=== PATIENT | female | born 1995 | race Caucasian/White ===

== ENCOUNTER → 2016-03-26 | Outpatient (CLI) | payer OTHER ==
[~2016-03-26] MED LIST: ACET-1256 PO; FRRS300 PO; OXYC5TAB PO; PRENTAB26 PO
== END | disposition home or self-care (01) ==
LOC: C.LABSPEC 10:37
PROVIDERS: ATTEND Obstetrics & Gynecology
DX: R35.0 Frequency of micturition (principal)

== ENCOUNTER 2016-04-09 13:15 | Inpatient (IN) | payer OTHER ==
[~2016-04-09] VITALS: Ht 165.1 cm; Wt 96.0 kg
[~2016-04-09 13:15] MED LIST changes: -FRRS300 PO
[2016-04-09] MEDS ORDERED: LACTATED RINGER'S 1000ML 1,000 ML IV SCH ×2 (13:19→13:43)
[2016-04-09] MEDS ORDERED: BUPIVACAINE 0.25% 30 ML VIAL ONE (13:22)
[2016-04-09] MEDS ORDERED: FENTANYL CITRATE INJ 50 MCG/1 ML 2 ML VIAL ONE (13:23)
[2016-04-09] MEDS ORDERED: FENTANYL 2MCG/ML ROPIV 1.25MG/ML 100ML BAG EPI ONE (13:23)
[2016-04-09] MEDS ORDERED: EpHEDrine SULFATE INJ 50 MG/ML AMP ONE (13:23)
[2016-04-09] MEDS ORDERED: PENICILLIN G POTASSIUM IV 3 MU in DEXTROSE 5% 100ML 100 ML IV PRN ×2 (13:30→13:45)
[2016-04-09] MEDS ORDERED: PENICILLIN G POTASSIUM IV 6 MU in DEXTROSE 5% 250ML 250 ML IV ONE ×2 (13:30→13:45)
[2016-04-09] MEDS: LACTATED RINGER'S 1000ML 1,000 ML IV PRN ×2 (13:34→17:23)
[2016-04-09] MEDS ORDERED: LACTATED RINGER'S 1000ML 1,000 ML IV PRN (13:43)
[2016-04-09 13:52] LABS: HEMATOCRIT 33.3 % (37-47); MEAN CELL VOLUME 85.6 fL (80-100); MEAN CORPUSCULAR HEMOGLOBIN 29.3 pg (25-34); MEAN CORPUSCULAR HGB CONC 34.2 g/dl (32-36); MEAN PLATELET VOLUME 10.2 fL (7.4-10.4); PLATELET COUNT 249 K/uL (130-400); RED BLOOD COUNT 3.89 M/uL (4.2-5.4); WHITE BLOOD COUNT 22.79 K/uL (4.8-10.8)
[2016-04-09] MEDS ORDERED: LACTATED RINGER'S 1000ML 500 ML IV PRN (14:19)
[2016-04-09] MEDS ORDERED: NALOXONE HCL INJ 0.4 MG/1 ML VIAL/CARP IV PRN (14:30)
[2016-04-09] MEDS ORDERED: DiphenhydrAMINE HCL 50 MG/ML VIAL IV PRN (14:30)
[2016-04-09] MEDS ORDERED: ONDANSETRON INJ 2 MG/ML 2 ML VIAL IV PRN (14:30)
[2016-04-09] MEDS ORDERED: NALBUPHINE HCL INJ 10 MG/ML AMP IV PRN (14:30)
[2016-04-09] MEDS ORDERED: EpHEDrine SULFATE INJ 50 MG/ML AMP IV PRN (14:30)
[2016-04-09] MEDS ORDERED: FENTANYL 2MCG/ML ROPIV 1.25MG/ML 100ML BAG EPI PRN (14:30)
[2016-04-09 14:53] VITALS: Ht 165.1 cm; Wt 96.0 kg
[2016-04-09] MEDS ORDERED: OXYTOCIN 30 UNITS/500ML NSS IV ONE (17:38)
[2016-04-09] MEDS ORDERED: IBUPROFEN 600 MG TAB PO PRN (18:15)
[2016-04-09] MEDS ORDERED: OXYTOCIN 30 UNITS/500ML NSS IV PRN (18:15)
[2016-04-09] MEDS ORDERED: DIPHTHERIA/TETANUS/PERTUSSIS 0.5 ML SYR/VIAL IM. ONE (18:15)
[2016-04-09] MEDS ORDERED: SUPERCREAM 0.870 % 15GM JAR EXT PRN (18:15)
[2016-04-09] MEDS ORDERED: ACETAMINOPHEN/CODEINE 300/30MG TAB PO PRN (18:15)
[2016-04-09] MEDS ORDERED: LANOLIN OINT EXT PRN ×2 (18:15)
[2016-04-09] MEDS ORDERED: ACETAMINOPHEN 325 MG TAB PO PRN (18:15)
[2016-04-09] MEDS ORDERED: OXYCODONE/ACETAMINOPHEN 5-325 TAB PO PRN (18:15)
[2016-04-09] MEDS ORDERED: HYDROCORTISONE ACETATE 25 MG SUPP PR PRN (18:15)
[2016-04-09] MEDS ORDERED: BENZOCAINE 20% AER SPR 82.5 GM CAN EXT PRN (18:15)
--- NOTE | 2016-04-09 19:53 | Anesthesia Procedure Note ---
Anesthesia Epidural Removal Nt Date & Time Apr 09, 2016 at 19:53 Vital Signs Pain Intensity: 0.0 Notes Mental Status: alert / awake / arousable, participated in evaluation Nausea / Vomiting: adequately controlled Pain: adequately controlled Airway Patency, RR, SpO2: stable & adequate BP & HR: stable & adequate Hydration State: stable & adequate Neuraxial Anesthesia: was administered, sensory block is resolved Anesthetic Complications: no major complications apparent, pt satisfied with anesthetic care Epidural: removed without complications, with tip intact
[2016-04-09] MEDS: DOCUSATE SODIUM 100 MG CAP PO SCH (20:00)
--- NOTE | 2016-04-09 20:00 | DELIVERY SUMMARY ---
DATE OF OPERATION: 04/09/2016 PREOPERATIVE DIAGNOSIS: 1. Intrauterine at 39-1/7 weeks. 2. Active labor. POSTOPERATIVE DIAGNOSIS: Same. PROCEDURES: 1. Epidural anesthesia. 2. Normal spontaneous vaginal delivery. 3. First degree vaginal laceration, bilateral labial lacerations and periclitoral laceration with repair. SURGEON: Dr. Jay. ANESTHESIA: Epidural. ESTIMATED BLOOD LOSS: 400 mL. PROCEDURE: The patient presented to labor and delivery in active labor. She was admitted and underwent an epidural anesthesia, had spontaneous rupture of membranes and progressed spontaneously to complete complete and +2 station. She pushed over 2 contractions to delivery a viable male infant in FCO presentation. There was no nuchal cord but a knuckle of cord came out after the head was delivered. The anterior shoulder was then immediately delivered with ease and the rest of the body was delivered. There was immediate cry. Nose and mouth were bulb suctioned. The was placed on the maternal abdomen where the cord was clamped and cut. Cord blood was obtained. The placenta delivered spontaneously intact with a 3-vessel cord. The cervix, sulci, rectum and perineum were examined and found to be intact. There was first degree vaginal laceration, bilateral labial lacerations and periclitoral laceration which were repaired with 3 and 4-0 Vicryl. Hemostasis obtained with dilute Pitocin and fundal massage. Apgars pending. Weight pending. Mother and baby doing well at the end of the delivery. I attest to the content of the Intraoperative Record and any orders documented therein. Any exceptio ns are noted below.
[2016-04-09 20:20] VITALS: BP 120/66; PULSE 110; TEMP 36.4
[2016-04-09] MEDS: ACETAMINOPHEN/CODEINE 300/30MG TAB PO PRN (22:13)
[2016-04-09 23:25] VITALS: BP 112/78; PULSE 94; TEMP 36.8
[2016-04-10] MEDS: ACETAMINOPHEN/CODEINE 300/30MG TAB PO PRN ×3 (00:50→17:09)
[2016-04-10 03:50] VITALS: BP 124/79; PULSE 98; TEMP 36.7
[2016-04-10 06:42] LABS: HEMATOCRIT 27.5 % (37-47)
--- NOTE | 2016-04-10 07:08 | Progress Note ---
Subjective Apr 10, 2016. Subjective conversation w/ patient, physical exam Ambulation: ambulating normally Voiding: no voiding problems Passing Gas: Yes Diet Tolerance: Regular Diet Feeding Type: Breast Feeding Review of Systems Constitutional: No chills, No fever Respiratory: No cough Cardiac: No chest pain, No palpitations Abdomen: No nausea, No pain, No vomiting Female : No dysuria Objective Vital Signs Date Time Temp Pulse Resp B/P Pulse Ox O2 Delivery O2 Flow Rate FiO2 04/10/16 03:50 36.7 98 20 124/79 Room Air 04/09/16 23:25 Room Air 04/09/16 23:25 36.8 94 18 112/78 Room Air 04/09/16 20:20 36.4 110 20 120/66 Room Air 04/09/16 20:20 Room Air Physical Exam General Appearance: WELL-APPEARING, NO APPARENT DISTRESS Respiratory/Chest: lungs clear, normal breath sounds Cardiovascular: regular rate, rhythm, no murmur Abdomen: non tender Fundus: Firm, Non-Tender, Relation to Umbilicus (2 cm above) Extremities: non-tender, no calf tenderness Laboratory Results Last 24 Hours Test 04/09/16 13:46 04/10/16 06:25 White Blood Count 22.79 K/uL Red Blood Count 3.89 M/uL Hemoglobin 11.4 g/dL 9.2 g/dL Hematocrit 33.3 % 27.5 % Mean Corpuscular Volume 85.6 fL Mean Corpuscular Hemoglobin 29.3 pg Mean Corpuscular Hemoglobin Concent 34.2 g/dl RDW Standard Deviation 42.4 fL RDW Coefficient of Variation 13.7 % Platelet Count 249 K/uL Mean Platelet Volume 10.2 fL Assessment and Plan Problem List Medical Problems: (1) Back strain Status: Acute (2) Fever Status: Acute (3) Status: Acute (4) Pyelonephritis affecting Status: Acute (5) Sepsis Status: Acute (6) Spasm of back muscles Status: Acute (7) Spasm of back muscles Status: Acute Post- Day#: 1 Continue Routine Care: S/P Day 1 - Vital Signs reviewed and WNL. Hemoglobin Reviewed. 11.4 yesterday - Blood Type: O+, GBS+, Rubella Immune. - Pt is doing well clinically. - Encourage Ambulation, Monitor and Control pain with Motrin PRN, Resume regular diet, Monitor Lochia - Encourage Breast Feeding. - Continue routine post care Resident Physician Supervision Note: I interviewed and examined the patient. Discussed with Dr. Kapoor and agree with findings and plan as documented in the note. Any exceptions or clarifications are listed here: Uterus is below umbilicus when excess skin taken into account. Will give nicotene patch. Documented By: Abbey Jay
[2016-04-10] MEDS: DOCUSATE SODIUM 100 MG CAP PO SCH ×2 (07:53→19:57)
[2016-04-10] MEDS: NICOTINE 21 MG/24 HR TDSY TD SCH (07:53)
[2016-04-10] MEDS: PRENATAL VITAMIN TAB PO SCH (07:53)
[2016-04-10 08:00] VITALS: BP 124/79; PULSE 87; TEMP 37
[2016-04-10 12:35] VITALS: BP_SYST 112; BP_SYST 135; BP_DIAS 76; BP_DIAS 86; PULSE 99; TEMP 37.2
[2016-04-10 17:00] VITALS: BP 131/82; PULSE 103; TEMP 37.1
[2016-04-10 23:45] VITALS: BP 131/81; PULSE 87; TEMP 36.8; O2SAT 99
[2016-04-11] MEDS ORDERED: BISACODYL 10 MG SUPP PR PRN (07:00)
[2016-04-11 07:39] VITALS: BP 118/77; PULSE 81; TEMP 36.7
[2016-04-11] MEDS: PRENATAL VITAMIN TAB PO SCH (08:11)
[2016-04-11] MEDS: NICOTINE 21 MG/24 HR TDSY TD SCH (08:11)
[2016-04-11] MEDS: DOCUSATE SODIUM 100 MG CAP PO SCH (08:11)
--- NOTE | 2016-04-11 09:00 | Progress Note ---
Subjective Apr 11, 2016. Subjective conversation w/ patient, physical exam Voiding: no voiding problems Passing Gas: Yes Diet Tolerance: Regular Diet Lochia: Small Review of Systems Constitutional: No chills, No fatigue, No fever, No problem reported, No sweats , No weakness, No weight loss Female : No abnormal vaginal bleeding, No dysuria, No hematuria, No incontinence, No problem reported, No see HPI, No urinary frequency, No vaginal discharge Objective Vital Signs Date Time Temp Pulse Resp B/P Pulse Ox O2 Delivery O2 Flow Rate FiO2 04/11/16 07:39 36.7 81 18 118/77 Room Air 04/10/16 23:45 99 Room Air 04/10/16 23:45 36.8 87 18 131/81 99 Room Air 04/10/16 17:00 37.1 103 18 131/82 Room Air 04/10/16 17:00 Room Air 04/10/16 12:35 37.2 99 18 135/86 Room Air 112/76 Physical Exam General Appearance: WELL-APPEARING, NO APPARENT DISTRESS Abdomen: non tender, soft Fundus: Firm, Non-Tender, Relation to Umbilicus (3 below U) Extremities: no calf tenderness Assessment and Plan Problem List Medical Problems: (1) Back strain Status: Acute (2) Fever Status: Acute (3) Status: Acute (4) Pyelonephritis affecting Status: Acute (5) Sepsis Status: Acute (6) Spasm of back muscles Status: Acute (7) Spasm of back muscles Status: Acute Post- Day#: 2 Continue Routine Care: stable course GBS(+) discharge to home after lunch follow up 6 weeks
[2016-04-11] MEDS ORDERED: FRRS300 PO (09:09)
--- NOTE | 2016-04-11 09:10 | Discharge Instructions ---
Discharge Instructions Admission Reason for Admission: Check Ruptured Membranes Discharge Discharge Diagnosis / Problem: recovery from normal delivery Discharge Goals Goal(s): Routine recovery after delivery Medications Continue Dispensed Medications: supercream, dermaplast, tucks, lansinoh Activity Recommendations Activity Limitations: per Instructions/Follow-up section . Instructions / Follow-Up Instructions / Follow-Up ACTIVITY RECOMMENDATIONS: * Gradual return to full activity over the next 2-3 weeks. * No lifting - nothing heavier than baby over the next 2-3 weeks. * Do not engage in vigorous exercise, sexual activity or sports until cleared by your physician. * Do not drive or operate any motorized equipment until cleared by your physician. * You may shower/bathe daily. MEDICATIONS: For discomfort or pain, you may use Acetaminophen (Tylenol), Ibuprofen (Advil), or Naproxen (Aleve) following the package directions. For constipation you may use Colace following the package directions. BREAST CARE: If you are not breast feeding: * Wear a supportive bra 24 hours a day for one to two weeks. * Avoid stimulating your breasts and nipples as much as possible during the first few weeks after delivery. * When taking a shower, have the warm water hit your back, not breasts. * When your breasts feel full, apply ice packs. Usually three to four times a day helps ease the discomfort. * Take a mild pain medication (Tylenol / Motrin) when you are uncomfortable. If breast feeding: * Use breast milk to lubricate nipples. Lansinoh cream may be used for sore nipples. You do not need to remove cream prior to breast feeding. If using a different brand of cream, check the label for directions regarding removal of cream prior to nursing. * Wear a supportive bra. * If having problems with breasts or breast feeding, call a [employer] sales consultant or your health care provider. EPISIOTOMY CARE: After delivery, if you have an episiotomy (stitches), the following steps will ease discomfort and aid healing. * For the first 24 hours after delivery, place ice packs next to your episiotomy to help reduce swelling. * After the first 24 hour-period, sitz baths, either portable or in the tub, are suggested. A shower with a shower arm sprayed over the episiotomy may be comforting. * Luh care should be done after each voiding and bowel movement. Squirt warm water from a plastic bottle over the perineum (region of the body between the anus and urinary opening) and pat dry. * Use Dermoplast to ease discomfort. Shake container. [place] directly over the episiotomy. Place a Tucks on a clean sanitary pad next to your episiotomy. SPECIAL CARE INSTRUCTIONS: When you are discharged from the hospital, it is important for you to follow the instructions listed below: * During the first week at home, you should be able to care for yourself and your baby. In addition, the usual light household activities are encouraged. * Limit your activities to the way you feel. Do not try to clean the house or move furniture. Be sensible. * If you actively engage in sports and have done so up until the time of your delivery, you may resume these activities as soon as you feel able. This may take up to one month or even longer. Use good judgment. * Continue to take your vitamins for at least six weeks after the of your baby. * Your diet need not be limited unless you were on a special diet before your delivery. Breast-feeding mothers need around 2500 calories per day and at least 64-80 ounces of fluid per day (8 to 10 glasses). * You should eat foods from the four major food groups. Crash diets or fad diets are to be avoided. Eating lean meats, fresh fruits and vegetables, low-fat dairy products, high fiber foods and a regular exercise program, will help you get back to your pre- weight without putting your health at risk. * Constipation is sometimes a problem after delivery. Take a mild laxative as needed. If breast feeding, Milk of Magnesia is acceptable to use. You may use a suppository or Fleets enema if no episiotomy. * A daily shower or tub bath is suggested. Be sure to thoroughly and gently dry the perineum. * A bloody vaginal discharge will usually continue until around four weeks post . A small amount of bleeding may continue for as long as six weeks. Vaginal discharge changes from the bright red bleeding after delivery to pink then brownish and finally yellowish-pink before becoming white and disappearing. * Bleeding may increase with activity. Your first period may come in 4-8 weeks. If you are breast feeding, your period may be delayed even longer. * [place] (sex) can begin whenever both you and your partner feel comfortable and do not have any form of genital infection. It is recommended that you wait at least six weeks for internal and external healing to occur. If you have questions, please talk to your health care practitioner. A condom should be used to prevent infection and . * Foreplay, gentle intercourse and lubrication is very important the first several times to prevent pain. A water-based lubricant such as K-Y jelly or Astroglide may be used. * If you have RH negative blood and your baby is RH positive, you will receive RHOGAM by injection prior to discharge. The nurse will give you a card to keep with you that has the date and place that you received RHOGAM after delivery. * During your care, you had a Rubella screen done to check for the presence of rubella antibodies in your blood. If your test was negative, you will receive a Rubella vaccine prior to discharge. This vaccine may cause a fever, soreness at the injection site and flu-like symptoms. If these symptoms persist, notify your health care practitioner. is not advised for one month after a Rubella vaccine. * Verbalizes understanding of car seat law as reviewed with patient nursing. * Car Seat hand-out given and reviewed with patient by nursing. * Shaken baby information reviewed with patient by nursing. Call you doctor if: * Heavy bleeding (saturating several pads an hour) or passing clots the size of your fist. * A fever >101 degrees F (38.3 degrees C) on two occasions four hours apart and /or chills. * Unusual pain in the pelvic or vaginal areas. * "Baby Blues" lasting longer than two weeks. If you have any questions or concerns, call your health care practitioner at . FOLLOW UP VISIT: * Please call the office at to schedule a 6 week examination. It is important you keep this appointment. It is important for you to make arrangements for either yearly or twice yearly check-ups thereafter. Current Hospital Diet Patient's current hospital diet: Regular OB Diet Discharge Diet Recommended Diet: Regular OB Diet Pending Studies Studies pending at discharge: no Medical Emergencies . Who to Call and When: Medical Emergencies: If at any time you feel your situation is an emergency, please call 911 immediately. . Non-Emergent Contact Non-Emergency issues call your: Assorter . . "Provider Documentation" section prepared by Sully Bernard. VTE Core Measure Inpt VTE Proph given/why not?: Treatment not indicated
[2016-04-11] MEDS ORDERED: FERROUS SULFATE 325 MG TAB PO SCH (11:30)
[2016-04-11] MEDS: ACETAMINOPHEN/CODEINE 300/30MG TAB PO PRN (12:21)
[2016-04-11 12:50] VITALS: BP_DIAS 77; PULSE 81; TEMP 36.7
== END 2016-04-11 12:50 | disposition home or self-care (01) | DRG 775 ==
LOC: C.OPB 13:15 → C.LD 13:20 → C.OPB 13:27 → C.OBG 20:40
PROVIDERS: ADMIT Obstetrics & Gynecology; ATTEND Obstetrics & Gynecology
PROC: 10E0XZZ Delivery of Products of Conception, External Approach (ICD-10-PCS; principal; 2016-04-09)
PROC: 0HQ9XZZ Repair Perineum Skin, External Approach (ICD-10-PCS; principal; 2016-04-09)
DX: O99.824 Streptococcus B carrier state complicating childbirth (principal); O70.0 First degree perineal laceration during delivery; Z3A.39 39 weeks gestation of pregnancy; Z37.0 Single live birth

== ENCOUNTER → 2016-05-21 | Outpatient (CLI) | payer OTHER ==
[~2016-05-21] MED LIST changes: +FRRS300 PO; -OXYC5TAB PO
== END | disposition home or self-care (01) ==
LOC: C.PAPS 08:27
PROVIDERS: ATTEND Obstetrics & Gynecology
DX: Z39.2 Encounter for routine postpartum follow-up (principal); R87.610 Atypical squamous cells of undetermined significance on cytologic smear of cervix (ASC-US)

== ENCOUNTER 2017-06-02 21:30 | Inpatient (IN) | payer OTHER ==
[~2017-06-02] VITALS: Ht 167.6 cm; Wt 97.6 kg
--- NOTE | 2017-06-02 21:50 | EMERGENCY ROOM VISIT NOTE ---
History Report prepared by Marie: Blake Nevarez Under the Supervision of: Dr. Fermín Person M.D. First contact with patient: 21:44 Chief Complaint: URINARY SYMPTOMS Stated Complaint: SEVERE BACK PAIN,KIDNEY INFECTION/UTI, 27 WKS PREG Nursing Triage Summary: Patient reports she was seen at [place] and diagnosed with UTI and kidney infection. Patient given antibiotic but it made her sick so she came here. Patient having burning, pain, and frequency with urination, also low back pain. Patient is 27 weeks . History of Present Illness The patient is a 22 year old female who presents to the Emergency Room with complaints of constant, severe, lower back pain beginning 16 hours ago. The patient states she woke up this morning in pain. She reports she tried taking Tylenol because she had a fever of 104. The patient notes it did not help her symptoms. She states she called her PRINCIPAL STATISTICAL SCIENTIST and was told to be evaluated to make sure the baby is okay. The patient reports the baby is active, but it is not as active as it normally is. She notes she was evaluated in [place] ED and was diagnosed with a UTI and kidney infection. The patient states she was given a dose of IV Keflex and told to fill her prescription in the morning. She reports she was also told to return to the ED if her symptoms worsen. The patient notes they did. She states her last dose of Tylenol was an hour ago. The patient denies vaginal bleeding. Source of History: patient Onset: 16 hours ago Position: back (lower) Symptom Intensity: severe Timing: constant Associated Symptoms: + fevers (104) Note: Denies: vaginal bleeding Review of Systems See HPI for pertinent positives & negatives. A total of 10 systems reviewed and were otherwise negative. Past Medical & Surgical Medical Problems: (1) Cellulitis of labia (2) Normal labor (3) with 27 completed weeks gestation (4) with 39 completed weeks gestation (5) Prolonged (6) Rash (7) Rash (8) Rash (9) Sepsis (10) UTI (urinary tract infection) (11) UTI (urinary tract infection) (12) Vaginal delivery Family History Diabetes mellitus FH: cancer FH: lung disease FHx: cancer FHx: heart disease Kidney disease Kidney stones Seizures Social History Smoking Status: Current Every Day Smoker Drug Use: none Marital Status: single Housing Status: lives with family Occupation Status: student Current/Historical Medications Scheduled Cephalexin Monohydrate (Keflex), 500 MG PO q6-7 hours Multivit/Min/Iron/Fol Ac/Pren ( Vitamin), 1 TAB PO DAILY [antibiotic iv], Unknown Dose IV once Scheduled PRN Acetaminophen (Tylenol), 1,000 MG PO Q6 PRN for Pain Allergies Coded Allergies: No Known Allergies (Unverified , NONE, 06/02/17) Physical Exam Vital Signs Date Time Temp Pulse Resp B/P (MAP) Pulse Ox O2 Delivery O2 Flow Rate FiO2 06/03/17 01:25 126 18 92/48 96 06/03/17 00:50 125 16 101/47 99 Room Air 06/03/17 00:06 39.2 124 16 90/45 99 Room Air 06/02/17 22:10 128 06/02/17 22:04 98 Room Air 06/02/17 21:34 37.8 138 18 132/83 100 Room Air Physical Exam GENERAL: Awake, alert, well-appearing, in no acute distress HENT: Normocephalic, atraumatic. Oropharynx unremarkable. EYES: Normal conjunctiva. Sclera non-icteric. NECK: Supple. No nuchal rigidity. FROM. No JVD. RESPIRATORY: Clear to auscultation. CARDIAC: Regular rate, normal rhythm. Extremities warm and well perfused. Pulses equal. ABDOMEN: Soft, gravid, non-distended. No tenderness to palpation. No rebound or guarding. No masses. RECTAL: Deferred. MUSCULOSKELETAL: Chest examination reveals no tenderness. The back is symmetrical on inspection without obvious abnormality. There is no CVA tenderness to palpation. No joint edema. LOWER EXTREMITIES: Calves are equal size bilaterally and non-tender. No edema. No discoloration. NEURO: Normal sensorium. No sensory or motor deficits noted. SKIN: No rash or jaundice noted. Medical Decision & Procedures ER Provider Diagnostic Interpretation: Radiology results as stated below per my review and radiologist interpretation: US RENAL: Mild bilateral hydronephrosis without stones. Bladder is decompressed. Radiologist: Dawson Marie MD Study ready at 23:53 and initial results transmitted at 0005. US OB 3RD TRIMESTER: Single viable intrauterine gestation with normal heart rate. Placenta is normal-appearing. No retroplacental hemorrhage is detected. Cervix is closed and measures 4.9 cm. DAMARI is normal. Radiologist: Dawson Marie MD Study ready at 23:54 and initial results transmitted at 0007. Laboratory Results 06/02/17 22:15 Red Blood Count 3.60, Mean Corpuscular Volume 88.6, Mean Corpuscular Hemoglobin 31.1, Mean Corpuscular Hemoglobin Concent 35.1, Mean Platelet Volume 10.2, Neutrophils (%) (Auto) 85.9, Lymphocytes (%) (Auto) 5.2, Monocytes (%) (Auto) 8.5, Eosinophils (%) (Auto) 0.1, Basophils (%) (Auto) 0.0, Neutrophils # (Auto) 13.26, Lymphocytes # (Auto) 0.80, Monocytes # (Auto) 1.31, Eosinophils # (Auto) 0.02, Basophils # (Auto) 0.00 06/02/17 22:15 Test 06/02/17 22:15 06/02/17 22:23 06/03/17 00:50 White Blood Count 15.44 K/uL (4.8-10.8) Red Blood Count 3.60 M/uL (4.2-5.4) Hemoglobin 11.2 g/dL (12.0-16.0) Hematocrit 31.9 % (37-47) Mean Corpuscular Volume 88.6 fL (80-100) Mean Corpuscular Hemoglobin 31.1 pg (25-34) Mean Corpuscular Hemoglobin Concent 35.1 g/dl (32-36) Platelet Count 154 K/uL (130-400) Mean Platelet Volume 10.2 fL (7.4-10.4) Neutrophils (%) (Auto) 85.9 % Lymphocytes (%) (Auto) 5.2 % Monocytes (%) (Auto) 8.5 % Eosinophils (%) (Auto) 0.1 % Basophils (%) (Auto) 0.0 % Neutrophils # (Auto) 13.26 K/uL (1.4-6.5) Lymphocytes # (Auto) 0.80 K/uL (1.2-3.4) Monocytes # (Auto) 1.31 K/uL (0.11-0.59) Eosinophils # (Auto) 0.02 K/uL (0-0.5) Basophils # (Auto) 0.00 K/uL (0-0.2) RDW Standard Deviation 44.0 fL (36.4-46.3) RDW Coefficient of Variation 13.5 % (11.5-14.5) Immature Granulocyte % (Auto) 0.3 % Immature Granulocyte # (Auto) 0.05 K/uL (0.00-0.02) Prothrombin Time 10.5 SECONDS (9.0-12.0) Prothromb Time International Ratio 1.0 (0.9-1.1) Activated Partial Thromboplast Time 32.8 SECONDS (21.0-31.0) Partial Thromboplastin Ratio 1.3 Anion Gap 8.0 mmol/L (3-11) Est Creatinine Clear Calc Drug Dose 125.8 ml/min Estimated GFR () 121.3 Estimated GFR (Non- 104.7 BUN/Creatinine Ratio 7.4 (10-20) Calcium Level 8.3 mg/dl (8.5-10.1) Total Bilirubin 0.3 mg/dl (0.2-1) Aspartate Amino Transf (AST/SGOT) 10 U/L (15-37) Alanine Aminotransferase (ALT/SGPT) 13 U/L (12-78) Alkaline Phosphatase 102 U/L (45-117) Total Protein 7.1 gm/dl (6.4-8.2) Albumin 2.7 gm/dl (3.4-5.0) Globulin 4.4 gm/dl (2.5-4.0) Albumin/Globulin Ratio 0.6 (0.9-2) Bedside Lactic Acid Venous 1.17 mmol/L (0.90-1.70) Labs reviewed by ED physician. Medications Administered Medications (Trade) Dose Ordered Sig/Josue Route Start Time Stop Time Status Last Admin Dose Admin Sodium Chloride 1,000 ml @ 999 mls/hr Q1H1M ONCE IV 06/02/17 21:51 06/02/17 22:51 DC 06/02/17 22:32 999 MLS/HR Ceftriaxone Sodium (Rocephin Inj) 1 gm NOW STAT IV 06/02/17 21:51 06/02/17 21:54 DC 06/02/17 22:31 1 GM Ondansetron HCl (Zofran Inj) 4 mg NOW STAT IV 06/02/17 21:51 06/02/17 21:54 DC 06/02/17 22:31 4 MG Sodium Chloride 1,000 ml @ 999 mls/hr Q1H1M STAT IV 06/02/17 22:40 06/02/17 23:40 DC 06/02/17 22:50 999 MLS/HR Sodium Chloride 1,000 ml @ 999 mls/hr Q1H1M STAT IV 06/02/17 23:44 06/03/17 00:44 DC 06/02/17 23:55 999 MLS/HR Morphine Sulfate (MoRPHine SULFATE INJ) 6 mg NOW STAT IV 06/03/17 00:30 06/03/17 00:32 DC 06/03/17 00:51 6 MG Acetaminophen (Tylenol Tab) 1,000 mg NOW STAT PO 06/03/17 00:30 06/03/17 00:32 DC 06/03/17 00:51 1,000 MG ECG Per My Interpretation Indication: other (Sepsis) Rate (beats per minute): 126 Rhythm: sinus tachycardia Findings: other (No ST elevation or depression) ED Course 2145: Past medical records reviewed. The patient was evaluated in room B03B. A complete history and physical examination was performed. 2151: Ordered Ondansetron HCl 4mg IV, Rocephin 1gm IV, Sodium Chloride 1000 ml @ 999 mls/hr IV 2240: Ordered Sodium Chloride 1000 ml @ 999 mls/hr IV 2344: Ordered Sodium Chloride 1000 ml @ 999 mls/hr IV 0028: Upon reexamination the patient is requesting pain medication. I offered Tylenol. I cautioned her on the use of Morphine during . She states she still wants the Morphine. I discussed results and treatment plan with the patient. She verbalizes agreement and understanding. The patient will be evaluated for further management. 0030: Ordered Acetaminophen 1000mg PO, Morphine Sulfate 6mg IV 0047: I discussed the patient's case with Dr. Luque, PRINCIPAL STATISTICAL SCIENTIST. She suggested the patient be admitted to the ICU. I stressed to her that she must put the admission order in. 0052: I discussed the patient's case with Jami Godinez PA-C of the ICU. The patient will be evaluated for further management and care. Medical Decision Differential diagnosis: Etiologies such as sepsis, UTI, pneumonia, metabolic, electrolyte abnormalities , cardiac sources, intracerebral event, toxicologic, neurologic, as well as others were entertained. This is a 22-year-old female who presents the emergency department complaining of back pain as well as urinary symptoms. Patient was at an outside hospital earlier today if continues to have symptoms. Upon arrival to the emergency department she is febrile hypotensive and tachycardic. For this reason the patient was given 30 mL's per kilogram of fluid. She was pancultured and a lactic acid was obtained. The patient was found to have an elevation in her white blood cell count. She was started on Rocephin here in the emergency department. She was sent for an ultrasound of the baby as well as her kidneys. serial abdominal examinations were performed and the patient in the emergency department and at no time to the patient exhibited a surgical abdomen or even abdominal tenderness. I did discuss the case with both the ICU as well as the french folding machine operator gas operations analyst who agreed to admit the patient. Patient and family were in agreement with the treatment plan. The patient was given morphine in the emergency department as well as Tylenol. Medication Reconcilliation Current Medication List: was personally reviewed by me Blood Pressure Screening Patient's blood pressure: Low blood pressure Monitored by hospitalist. Consults Time Called: 37 Consulting Physician: Dr. Luque, PRINCIPAL STATISTICAL SCIENTIST Returned Call: [phone] I discussed the patient's case with Dr. Luque, PRINCIPAL STATISTICAL SCIENTIST. She suggested the patient be admitted to the ICU. I stressed to her that she must put the admission order in. Additional Consults: Time Called: 50 Consulted Physician: Jami Godinez PA-C of the ICU Returned Call: [phone] Additional Comments: I discussed the patient's case with Jami Godinez PA-C of the ICU. The patient will be evaluated for further management and care. Impression Primary Impression: Sepsis Additional Impressions: UTI (urinary tract infection) Critical Care I have personally spent greater than 30 minutes of critical care time in the direct management of this patient. This includes bedside care, interpretation of diagnostic studies, and testing, discussion with consultants, patient, and family members, and other required patient management activities. This 30 minutes is in excess of all separately billable procedures. Scribe Attestation The scribe's documentation has been prepared under my direction and personally reviewed by me in its entirety. I confirm that the note above accurately reflects all work, treatment, procedures, and medical decision making performed by me. Departure Information Dispostion Being Evaluated By Hospitalist Referrals Mary Ellen Pickens C.R.N.P (PCP) Patient Instructions My [facility] Sepsis Post Crystalloid Evaluation Date: Jun 02, 2017 Time: 21:46 Capillary Refill Exam Normal (less than 2 seconds) Cardiopulmonary Evaluation Lung Exam: chest non-tender, lungs clear, normal breath sounds, no respiratory distress, no accessory muscle use Heart Exam: regular rate, rhythm, no edema, no gallop, no JVD, no murmur, normal peripheral pulses Peripheral Pulse Evaluation Bounding Skin Exam Diaphoretic Vitals Last Vital Signs Documentation Date Time Temp Pulse Resp B/P (MAP) Pulse Ox O2 Delivery O2 Flow Rate FiO2 06/03/17 01:25 126 18 92/48 96 06/03/17 00:06 39.2 Presence Of Septic Shock Problem Qualifiers Primary Impression: Sepsis Sepsis type: sepsis due to unspecified organism Qualified Codes: A41.9 - Sepsis, unspecified organism Additional Impressions: UTI (urinary tract infection) Urinary tract infection type: acute cystitis Hematuria presence: without hematuria Qualified Codes: N30.00 - Acute cystitis without hematuria Weeks of gestation: 28 weeks Qualified Codes: Z3A.28 - 28 weeks gestation of
[2017-06-02] MEDS ORDERED: ONDANSETRON INJ 2 MG/ML 2 ML VIAL IV STA (21:51)
[2017-06-02] MEDS ORDERED: CEFTRIAXONE SOD INJ 1 GM ADDVIAL IV STA (21:51)
[2017-06-02] MEDS ORDERED: SODIUM CHLORIDE 0.9% 1000ML 1,000 ML IV ONE (21:51)
[2017-06-02] MEDS ORDERED: CEPH500C2 PO (22:01)
[2017-06-02] MEDS ORDERED: ANTIBIOTIC (22:03)
[2017-06-02 22:35] LABS: EOS % 0.1 %; EOS ABS # 0.02 K/uL (0-0.5); HEMATOCRIT 31.9 % (37-47); HEMOGLOBIN 11.2 g/dL (12.0-16.0); IG# 0.05 K/uL (0.00-0.02); LYMPH % 5.2 %; MEAN CELL VOLUME 88.6 fL (80-100); MEAN CORPUSCULAR HEMOGLOBIN 31.1 pg (25-34); MEAN CORPUSCULAR HGB CONC 35.1 g/dl (32-36); MEAN PLATELET VOLUME 10.2 fL (7.4-10.4); MONO % 8.5 %; MONO ABS # 1.31 K/uL (0.11-0.59); NEUT % 85.9 %; NEUT ABS # 13.26 K/uL (1.4-6.5); PLATELET COUNT 154 K/uL (130-400); RED CELL DISTRIBUTION WIDTH CV 13.5 % (11.5-14.5); WHITE BLOOD COUNT 15.44 K/uL (4.8-10.8)
[2017-06-02] MEDS ORDERED: SODIUM CHLORIDE 0.9% 1000ML 1,000 ML IV STA ×2 (22:40→23:44)
--- NOTE | 2017-06-02 22:41 | DIAGNOSTIC IMAGING REPORT ---
CHEST ONE VIEW PORTABLE CLINICAL HISTORY: Sepsis dyspnea COMPARISON STUDY: 01/15/2016 FINDINGS: The bones soft tissues and hemidiaphragms are normal. The cardiomediastinal silhouette is normal. The lungs are clear. The pulmonary vasculature is normal. IMPRESSION: Negative chest. The above report was generated using voice recognition software. It may contain grammatical, syntax or spelling errors. Electronically signed by: Bill London M.D. 06/02/2017 10:40 PM Dictated Date/Time: 06/02/2017 10:39 PM
[2017-06-02 22:53] LABS: PTT PATIENT 32.8 SECONDS (21.0-31.0)
[2017-06-02 22:54] LABS: ALBUMIN 2.7 gm/dl (3.4-5.0); CALCIUM 8.3 mg/dl (8.5-10.1); CREATININE 0.8 mg/dl (0.60-1.20); POTASSIUM 3.5 mmol/L (3.5-5.1)
[2017-06-02 22:57] LABS: TOTAL PROTEIN 7.1 gm/dl (6.4-8.2)
[2017-06-03] VITALS (12 sets, daily range): BP systolic 84–130; BP diastolic 47–72; PULSE 110–130; TEMP 36.5–37.9; O2SAT 88–99; Ht 167.6 cm; Wt 97.6 kg
[2017-06-03] MEDS ORDERED: ACETAMINOPHEN 500 MG TAB PO STA (00:30)
[2017-06-03] MEDS ORDERED: MoRPHine SULFATE 10 MG/ML CARP/VIAL IV STA (00:30)
--- NOTE | 2017-06-03 01:52 | Critical Care Consultation ---
Critical Care Consultation Date of Consultation: Jun 03, 2017. Attending Physician: Canan. Barrett MD Reason for Consultation: Hypotension and Tachycardia in the setting of infection History of Present Illness Susan Sanchez is a 22 yo female 28weeks with her third son. She presents to [facility] today after being diagnosed with a uti/kidney infection at [facility] and received IV Keflex. Per pt she was discharged home and told these medications would cover her for 24hrs. Her pain started this AM. She had attempted to treat of fever of 104 with tylenol. She did return home and rested. When she awoke she felt worse than before and was diaphoretic and feverish. She states she had bilateral flank pain at the time with the worse on her right, 10/10 pain. Currently pain is resolved on right and continues on left at a 6/10. [place] best when she was getting fluids in the ED. She states pain is constant in nature and doesn't wax/waned. She denies nausea or vomiting. She states her urine has been more concentrated and malodorous, even causing her to gag. However, she denies increased frequency, urgency dysuria or incontinence. Pt states she continues to be sexually active with her significant other only. She does state she was treated to Chlamydia (though not tested) 5 years ago when her sign other was positive. Otherwise, no ongoing STI dx or sx. 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 She denies discharge, burning, pain with intercourse and bleeding. Per pt she has a hx of UTIs and kidney infections in her last . Her first she was monitored for high blood pressure. The patient denies weight loss, dizziness, headache, muscle weakness, numbness, change in vision, sore throat, chest pain, palpitations, awareness of tachyarrhythmias, leg swelling, shortness of breath, nausea, vomiting, bloody stools, diarrhea, constipation, other changes in bowel habits. She does admit to continued 1/2ppd smoking, no drinking hx. She has a chronic dry cough for the last month. She denies neck pain. Past Medical/Surgical History Medical Problems: Cellulitis of labia Normal labor Rash Sepsis UTI (urinary tract infection) Vaginal delivery Family History Diabetes mellitus FH: cancer FH: lung disease FHx: cancer FHx: heart disease Kidney disease Kidney stones Seizures Social History Smoking Status: Current Every Day Smoker (1/2ppd) Smokeless Tobacco Use: No Alcohol Use: none Drug Use: none Marital Status: in relationship Housing Status: lives with family (Lives with both parents, significant other and 2 sons) Occupation Status: unemployed Allergies Coded Allergies: No Known Allergies (Unverified , NONE, 06/02/17) Home Medications Scheduled Cephalexin Monohydrate (Keflex), 500 MG PO q6-7 hours Multivit/Min/Iron/Fol Ac/Pren ( Vitamin), 1 TAB PO DAILY [antibiotic iv], Unknown Dose IV once Scheduled PRN Acetaminophen (Tylenol), 1,000 MG PO Q6 PRN for Pain Current Inpatient Medications Current Inpatient Medications Medications (Trade) Dose Ordered Sig/Josue Route Start Time Stop Time Status Last Admin Dose Admin Ceftriaxone Sodium 1 gm/ Dextrose 50 ml @ 100 mls/hr Q24H IV 06/03/17 20:00 06/13/17 19:59 UNV Acetaminophen 650 mg/Empty Bag 65 ml @ 260 mls/hr Q6H PRN IV 06/03/17 01:00 07/03/17 00:59 UNV Prenat Multivit/ Lynn/Iron/Folic Ac ( Vitamin Tab) 1 tab QAM PO 06/03/17 09:00 07/03/17 08:59 UNV Review of Systems 12 systems reviewed and negative other than previously mentioned in the HPI. Physical Exam Date Time Temp Pulse Resp B/P (MAP) Pulse Ox O2 Delivery O2 Flow Rate FiO2 06/03/17 01:25 37.9 126 18 92/48 96 06/03/17 00:50 125 16 101/47 99 Room Air 06/03/17 00:06 39.2 124 16 90/45 99 Room Air 06/02/17 22:10 128 06/02/17 22:04 98 Room Air 06/02/17 21:34 37.8 138 18 132/83 100 Room Air Vital Signs - as noted Laboratory Data - as noted Physical Exam: General - NAD, appears flushed and diaphoretic Eyes - PERRL, EOMI No icterus, gaze conjugate ENT - Mucosa moist, no lesions or candidiasis Neck - Supple, trachea midline, no masses or lymphadenopathy, no JVD or bruits Lungs - No paradoxical chest wall movement, clear to auscultation bilaterally, no wheezes, rales, or rhonchi Heart -Sinus tachycardia, No murmur, rubs, clicks, or gallops appreciated Abdomen - BS present, no bruits noted, tympanic to percussion, soft, nontender, uterus palpated above the umbilicus, no organomegaly Extremities - No edema, pedal pulses intact Neuro - A&OX4 Strength extremities equal and appropriate bilaterally Reflexes: normal and equal CN:PERRL, EOMI, no facial asymmetry, uvula/tongue midline Laboratory Results Last 24 Hours Test 06/02/17 22:15 06/02/17 22:23 06/03/17 00:50 White Blood Count 15.44 K/uL Red Blood Count 3.60 M/uL Hemoglobin 11.2 g/dL Hematocrit 31.9 % Mean Corpuscular Volume 88.6 fL Mean Corpuscular Hemoglobin 31.1 pg Mean Corpuscular Hemoglobin Concent 35.1 g/dl Platelet Count 154 K/uL Mean Platelet Volume 10.2 fL Neutrophils (%) (Auto) 85.9 % Lymphocytes (%) (Auto) 5.2 % Monocytes (%) (Auto) 8.5 % Eosinophils (%) (Auto) 0.1 % Basophils (%) (Auto) 0.0 % Neutrophils # (Auto) 13.26 K/uL Lymphocytes # (Auto) 0.80 K/uL Monocytes # (Auto) 1.31 K/uL Eosinophils # (Auto) 0.02 K/uL Basophils # (Auto) 0.00 K/uL RDW Standard Deviation 44.0 fL RDW Coefficient of Variation 13.5 % Immature Granulocyte % (Auto) 0.3 % Immature Granulocyte # (Auto) 0.05 K/uL Prothrombin Time 10.5 SECONDS Prothromb Time International Ratio 1.0 Activated Partial Thromboplast Time 32.8 SECONDS Partial Thromboplastin Ratio 1.3 Sodium Level 135 mmol/L Potassium Level 3.5 mmol/L Chloride Level 105 mmol/L Carbon Dioxide Level 22 mmol/L Anion Gap 8.0 mmol/L Blood Urea Nitrogen 6 mg/dl Creatinine 0.80 mg/dl Est Creatinine Clear Calc Drug Dose 125.8 ml/min Estimated GFR () 121.3 Estimated GFR (Non- 104.7 BUN/Creatinine Ratio 7.4 Random Glucose 98 mg/dl Calcium Level 8.3 mg/dl Total Bilirubin 0.3 mg/dl Aspartate Amino Transf (AST/SGOT) 10 U/L Alanine Aminotransferase (ALT/SGPT) 13 U/L Alkaline Phosphatase 102 U/L Total Protein 7.1 gm/dl Albumin 2.7 gm/dl Globulin 4.4 gm/dl Albumin/Globulin Ratio 0.6 Bedside Lactic Acid Venous 1.17 mmol/L Diagnostic Results CHEST ONE VIEW PORTABLE CLINICAL HISTORY: Sepsis dyspnea COMPARISON STUDY: 01/15/2016 FINDINGS: The bones soft tissues and hemidiaphragms are normal. The cardiomediastinal silhouette is normal. The lungs are clear. The pulmonary vasculature is normal. IMPRESSION: Negative chest. The above report was generated using voice recognition software. It may contain grammatical, syntax or spelling errors. Electronically signed by: Bill London M.D. 06/02/2017 10:40 PM Dictated Date/Time: 06/02/2017 10:39 PM US Renal: Mild bilateral hydronephrosis without stones. Bladder is decompressed. US OB 3rd Trimester: singe viable intrauterine gestation with normal heart rate. Placent is normal appearing. No retroplacental hemorrhage is detected. Cervix is closed and measures 4.9cm. DAMARI is normal. Assessment & Plan (1) Pyelonephritis affecting in second trimester (2) (3) Sepsis PLAN: : * NSS @ 100mLs/hr * Strict I&Os * BUN/Cr: 6/0.80 * Daily PRP * No [place] to gravity * UA: Leuk Est Pos without pyuria or nitrates * Renal US: Mild bilateral hydronephrosis without stones * Will treat for Pyelonephrosis/UTI: Rocephin IV (Did receive IV Keflex at [place] ED) * Prior UTI [place] sensitive E. Coli * Febrile, Flank pain, hydronephrosis noted, without N/V Neuro: * Tylenol PRN Pain or Fever 38.4 * Alert and Oriented Resp: * Supplemental oxygen as required * Adequate Saturations on room air currently * CXR without signs of infection CV: * SBP 90-132; monitor on telemetry * Continue fluids * Check Random Cortisol * Tachycardia 138 improving now 117 * Likely secondary to infection * Denies chest pain or cardiac history ID: * WBC: 15.44 * Lactic Acid Unremarkable 1.12 * Febrile: 39.2 * ABX: Rocephin (first day 06/02) * IV Keflex at [facility] * Trend fever curve. * Repeat Lactic Acid * Daily CBC GI/Nutrition: * Full Liquid diet, progress at tolerated if hypotension is resolved * No indication for GI Prophylaxis Heme: * H&H 11.2/31.9; Plts 154 * Repeat AM * Coags: PT/INR: 10.5/1.0 aPTT 32.8 * Repeat AM * SCDs ordered Endocrine: Accu-Checks per protocol, started insulin infusion for 2 blood sugars greater than 180 CCT: 0 Minutes; Level 5 inpatient billing This time is exclusive of all separately billable procedures. Thank you for involving us in the care of this patient. Please refer to Dr. Gucci Boyd's addendum for further recommendations. I have personally evaluated and examined this patient. I agree with assessment and plan of Mando Lee PA-C. Patient was informed she did in fact have a kidney infection, she does exhibit SIRS criteria. Patient's tachycardia may be reflected by her febrile illness, I certainly think she requires additional fluid resuscitation and close observation in the ICU. Continue the IV Rocephin at this time.
[2017-06-03] MEDS ORDERED: SODIUM CHLORIDE 0.9% 1000ML 1,000 ML IV SCH (03:15)
--- NOTE | 2017-06-03 03:47 | History and Physical ---
History & Physical Date & Time of Service: Jun 03, 2017 at 03:40 Chief Complaint: Sepsis, Uti Primary Care Physician: Mary Ellen Pickens C.R.N.P History of Present Illness Source: patient Patient is a 22 yo at 28.1 wks who woke up yesterday morning with fever / chills / flakn pain at 5 am. She took Tylenol with ot much help She called our office and recommended to go to ER She went to ER at [facility] and was given IV Keflex for UTI She was sent here for further treatment She is being admitted for UTI/ PN/ Sepsis She was given IV Ceftriaxone by ER physician and feels better now She was diagnosed with UTI about 4 weeks ago, E.Coli and treated with oral Macrobid Her has been complicated by 1) Smoker 2) Late care seeker 3) Close interval 4) UTI She denies contractions/ LOF/VB Reports good movements Past Medical/Surgical History Medical Problems: (1) Back strain (2) Cellulitis of labia (3) Fever (4) Lumbar radiculopathy (5) Normal labor (6) (7) with 27 completed weeks gestation (8) with 39 completed weeks gestation (9) Prolonged (10) Pyelonephritis affecting (11) Pyelonephritis affecting in second trimester (12) Rash (13) Rash (14) Rash (15) Sepsis (16) Sepsis (17) Spasm of back muscles (18) Spasm of back muscles (19) UTI (urinary tract infection) (20) UTI (urinary tract infection) (21) Vaginal delivery Family History Diabetes mellitus FH: cancer FH: lung disease FHx: cancer FHx: heart disease Kidney disease Kidney stones Seizures Social History Smoking Status: Current Every Day Smoker (1/2ppd) Smokeless Tobacco Use: No Alcohol Use: none Drug Use: none Marital Status: in relationship Occupational Status: unemployed Immunizations History of Influenza Vaccine: Yes History of Tetanus Vaccine?: CURRENT Allergies Coded Allergies: No Known Allergies (Unverified , NONE, 06/02/17) Home Medications Scheduled Cephalexin Monohydrate (Keflex), 500 MG PO q6-7 hours Multivit/Min/Iron/Fol Ac/Pren ( Vitamin), 1 TAB PO DAILY [antibiotic iv], Unknown Dose IV once Scheduled PRN Acetaminophen (Tylenol), 1,000 MG PO Q6 PRN for Pain Review of Systems Constitutional: + fever, + chills, + sweats, + weight loss, + weakness, + fatigue, + problem reported Physical Exam Vital Signs Date Time Temp Pulse Resp B/P (MAP) Pulse Ox O2 Delivery O2 Flow Rate FiO2 06/03/17 01:45 37.4 125 20 106/47 96 Room Air 06/03/17 01:25 37.9 126 18 92/48 96 06/03/17 00:50 125 16 101/47 99 Room Air 06/03/17 00:06 39.2 124 16 90/45 99 Room Air 06/02/17 22:10 128 06/02/17 22:04 98 Room Air 06/02/17 21:34 37.8 138 18 132/83 100 Room Air General Appearance: WD/WN, no apparent distress Head: normocephalic, atraumatic Neck: supple, no adenopathy Respiratory/Chest: chest non-tender, lungs clear Cardiovascular: regular rate, rhythm, no edema Abdomen/GI: normal bowel sounds, non tender, soft, + pertinent finding (Gravid) Back: + left CVA tenderness Skin: normal color, warm/dry Diagnostics Laboratory Results Results Past 24 Hours Test 06/02/17 22:15 06/02/17 22:23 06/03/17 00:50 Range/Units White Blood Count 15.44 4.8-10.8 K/uL Red Blood Count 3.60 4.2-5.4 M/uL Hemoglobin 11.2 12.0-16.0 g/dL Hematocrit 31.9 37-47 % Mean Corpuscular Volume 88.6 80-100 fL Mean Corpuscular Hemoglobin 31.1 25-34 pg Mean Corpuscular Hemoglobin Concent 35.1 32-36 g/dl Platelet Count 154 130-400 K/uL Mean Platelet Volume 10.2 7.4-10.4 fL Neutrophils (%) (Auto) 85.9 % Lymphocytes (%) (Auto) 5.2 % Monocytes (%) (Auto) 8.5 % Eosinophils (%) (Auto) 0.1 % Basophils (%) (Auto) 0.0 % Neutrophils # (Auto) 13.26 1.4-6.5 K/uL Lymphocytes # (Auto) 0.80 1.2-3.4 K/uL Monocytes # (Auto) 1.31 0.11-0.59 K/uL Eosinophils # (Auto) 0.02 0-0.5 K/uL Basophils # (Auto) 0.00 0-0.2 K/uL RDW Standard Deviation 44.0 36.4-46.3 fL RDW Coefficient of Variation 13.5 11.5-14.5 % Immature Granulocyte % (Auto) 0.3 % Immature Granulocyte # (Auto) 0.05 0.00-0.02 K/uL Prothrombin Time 10.5 9.0-12.0 SECONDS Prothromb Time International Ratio 1.0 0.9-1.1 Activated Partial Thromboplast Time 32.8 21.0-31.0 SECONDS Partial Thromboplastin Ratio 1.3 Sodium Level 135 136-145 mmol/L Potassium Level 3.5 3.5-5.1 mmol/L Chloride Level 105 98-107 mmol/L Carbon Dioxide Level 22 21-32 mmol/L Anion Gap 8.0 3-11 mmol/L Blood Urea Nitrogen 6 7-18 mg/dl Creatinine 0.80 0.60-1.20 mg/dl Est Creatinine Clear Calc Drug Dose 125.8 ml/min Estimated GFR () 121.3 Estimated GFR (Non- 104.7 BUN/Creatinine Ratio 7.4 10-20 Random Glucose 98 70-99 mg/dl Calcium Level 8.3 8.5-10.1 mg/dl Total Bilirubin 0.3 0.2-1 mg/dl Aspartate Amino Transf (AST/SGOT) 10 15-37 U/L Alanine Aminotransferase (ALT/SGPT) 13 12-78 U/L Alkaline Phosphatase 102 45-117 U/L Total Protein 7.1 6.4-8.2 gm/dl Albumin 2.7 3.4-5.0 gm/dl Globulin 4.4 2.5-4.0 gm/dl Albumin/Globulin Ratio 0.6 0.9-2 Bedside Lactic Acid Venous 1.17 0.90-1.70 mmol/L Urine Color DK YELLOW Urine Appearance CLEAR CLEAR Urine pH 8.0 4.5-7.5 Urine Specific [place] 1.017 1.000-1.030 Urine Protein NEG NEG Urine Glucose (UA) NEG NEG Urine Ketones NEG NEG Urine Occult Blood NEG NEG Urine Nitrite NEG NEG Urine Bilirubin NEG NEG Urine Urobilinogen NEG NEG Urine Leukocyte Esterase MODERATE NEG Urine WBC (Auto) >30 0-5 /hpf Urine RBC (Auto) 0-4 0-4 /hpf Urine Hyaline Casts (Auto) 1-5 0-5 /lpf Urine Epithelial Cells (Auto) >30 0-5 /lpf Urine Bacteria (Auto) NEG NEG Microbiology Results 06/02/17 Blood Culture, Received Pending 06/02/17 Blood Culture, Received Pending 06/03/17 MRSA DNA Surveillance Screen, Received Pending 06/03/17 Urine Culture, Received Pending Diagnostic Radiology Normal viable IUP Impression Assessment and Plan AP: 22 yo at 28.1 wks with UTI/PN admitted with findings of sepsis to ICU on IV AB, Tylenol Doing better IV fluid management per ICU team Pending urine culture results Plan NST q shift for monitoring No sigsn of labor Continue to monitor closely Advanced Directives Existing Living Will: No Existing Power of Bottoming Room Inspector: No Resuscitation Status VTE Prophylaxis Will order VTE Prophylaxis: Yes
[2017-06-03 04:52] LABS: EOS % 0.1 %; EOS ABS # 0.01 K/uL (0-0.5); HEMATOCRIT 27.7 % (37-47); HEMOGLOBIN 9.3 g/dL (12.0-16.0); IG# 0.08 K/uL (0.00-0.02); LYMPH % 9.1 %; LYMPH ABS # 1.46 K/uL (1.2-3.4); MEAN CELL VOLUME 89.1 fL (80-100); MEAN CORPUSCULAR HEMOGLOBIN 29.9 pg (25-34); MEAN CORPUSCULAR HGB CONC 33.6 g/dl (32-36); MEAN PLATELET VOLUME 9.9 fL (7.4-10.4); MONO % 9.2 %; MONO ABS # 1.47 K/uL (0.11-0.59); NEUT % 81.1 %; NEUT ABS # 12.94 K/uL (1.4-6.5); PLATELET COUNT 146 K/uL (130-400); RED CELL DISTRIBUTION WIDTH CV 13.7 % (11.5-14.5); WHITE BLOOD COUNT 15.96 K/uL (4.8-10.8)
[2017-06-03 05:09] LABS: CALCIUM 7.5 mg/dl (8.5-10.1); CREATININE 0.62 mg/dl (0.60-1.20); POTASSIUM 3.4 mmol/L (3.5-5.1)
[2017-06-03 05:10] LABS: PHOSPHORUS 2.4 mg/dl (2.5-4.9)
[2017-06-03 05:41] LABS: PTT PATIENT 34.1 SECONDS (21.0-31.0)
[2017-06-03] MEDS: ACETAMINOPHEN IV 650 MG in EMPTY BAG 0 ML IV PRN ×3 (06:01→17:47)
--- NOTE | 2017-06-03 06:46 | DIAGNOSTIC IMAGING REPORT ---
(RENAL)RETROPERITON COMP HISTORY: 22 years-old Female Pt c/o kidney infx acute kidney injury. Acute mid back pain with and urinary tract infection COMPARISON: Renal ultrasound 01/15/2016 TECHNIQUE: Multiple real-time sonographic images of the kidneys and urinary bladder were obtained assessing grayscale appearance and color flow FINDINGS: The right kidney measures 11.9 x 5.6 x 4.9 cm demonstrates no renal calculi or suspicious mass lesions. Mild pelvocaliectasis. Partially decompressed urinary bladder lumen with ureteral jets not identified. Left kidney measures 11.3 x 6.5 x 5.7 cm and demonstrates no renal calculi or suspicious mass lesions. Mild pelvocaliectasis. IMPRESSION: 1. Mild bilateral pelvocaliectasis without renal calculi identified, possibly physiologic changes. 2. Partially decompressed urinary bladder lumen. The above report was generated using voice recognition software. It may contain grammatical, syntax or spelling errors. Electronically signed by: Angel Ross M.D. 06/03/2017 6:45 AM Dictated Date/Time: 06/03/2017 6:41 AM
[2017-06-03] MEDS: MAGNESIUM OXIDE 400 MG TAB PO SCH ×3 (07:47→19:59)
[2017-06-03] MEDS: PRENATAL VITAMIN TAB PO SCH (07:48)
--- NOTE | 2017-06-03 08:13 | DIAGNOSTIC IMAGING REPORT ---
LIMITED (US) CLINICAL HISTORY: Pt c/o fever, 28 weeks preg. Mid back pain. COMPARISON STUDY: ultrasound 01/15/2016. FINDINGS: There is a single viable intrauterine gestation demonstrating a heart rate of 167 bpm. There is a posterior/left placenta located at the fundus. No evidence for subchorionic hematoma. The fetus is in a breech presentation at this time. The cervix is closed and measures 4.9 cm in length. Normal amniotic fluid index of 12.2 cm. A anatomical survey was not performed. IMPRESSION: Single viable intrauterine gestation with a heart rate of 167 bpm. Electronically signed by: Francesco Matt M.D. 06/03/2017 8:12 AM Dictated Date/Time: 06/03/2017 8:09 AM
[2017-06-03] MEDS ORDERED: CALCIUM CARBONATE 500 MG CHEWABLE PO PRN (10:45)
[2017-06-03] MEDS ORDERED: POTASSIUM CHLORIDE 20 MEQ TABCR PO ONE (10:52)
[2017-06-03 14:54] LABS: INFLUENZA A PCR Neg for Influ A (NEG); INFLUENZA B PCR Neg for Influ B (NEG)
[2017-06-03] MEDS ORDERED: CEFTRIAXONE SOD INJ 1 GM in DEXTROSE 5% ADD-VANTAGE 50ML 50 ML IV SCH (20:00)
[2017-06-04] VITALS (8 sets, daily range): BP systolic 82–116; BP diastolic 46–93; PULSE 93–119; TEMP 36.6–37.8; O2SAT 96–99
[2017-06-04] MEDS: ACETAMINOPHEN IV 650 MG in EMPTY BAG 0 ML IV PRN ×2 (00:41→08:17)
[2017-06-04 04:18] LABS: HEMOGLOBIN 9.9 g/dL (12.0-16.0); MEAN CELL VOLUME 88.1 fL (80-100); MEAN CORPUSCULAR HEMOGLOBIN 30.1 pg (25-34); MEAN CORPUSCULAR HGB CONC 34.1 g/dl (32-36); MEAN PLATELET VOLUME 10.1 fL (7.4-10.4); PLATELET COUNT 142 K/uL (130-400); RED CELL DISTRIBUTION WIDTH CV 13.7 % (11.5-14.5); RED CELL DISTRIBUTION WIDTH SD 44.6 fL (36.4-46.3); WHITE BLOOD COUNT 16.77 K/uL (4.8-10.8)
[2017-06-04 04:41] LABS: BLOOD UREA NITROGEN 4 mg/dl (7-18); CALCIUM 8.3 mg/dl (8.5-10.1); CARBON DIOXIDE 24 mmol/L (21-32); CREATININE 0.49 mg/dl (0.60-1.20); GLUCOSE 96 mg/dl (70-99); PHOSPHORUS 2.5 mg/dl (2.5-4.9); POTASSIUM 3.6 mmol/L (3.5-5.1); SODIUM 136 mmol/L (136-145)
[2017-06-04] MEDS: PRENATAL VITAMIN TAB PO SCH (07:51)
--- NOTE | 2017-06-04 08:46 | OB/GYN Progress Note ---
AGENT LICENSING CLERK Progress Note Date of Service: Jun 04, 2017. Patient is reevaluated She feels better but still c/o left flank pain Apetite is better, able to eat regular food this morning No fever but has chills on and off No CP/SOB/N&V/ dysuria No ctxs/ LOF/VB +FM's, baby is very active Date Time Temp Pulse Resp B/P (MAP) Pulse Ox O2 Delivery O2 Flow Rate FiO2 06/04/17 08:00 36.8 109 20 113/77 (89) 97 Room Air 06/04/17 08:00 Room Air 06/04/17 06:00 98 20 82/57 (65) 97 06/04/17 04:00 36.7 99 17 87/46 (60) 97 06/04/17 04:00 96 Room Air 06/04/17 02:00 98 19 109/67 (81) 06/04/17 00:00 37.8 119 22 116/66 (83) 96 06/03/17 23:59 97 Room Air 06/03/17 22:00 113 23 106/66 (79) 95 Room Air 06/03/17 20:00 36.9 112 22 120/61 (80) 97 Room Air 06/03/17 20:00 96 Room Air 06/03/17 18:00 125 22 115/60 (78) 94 Room Air 06/03/17 16:00 Room Air 06/03/17 16:00 37.6 126 25 130/72 (91) 95 Room Air 06/03/17 14:00 110 21 115/62 (79) 97 Room Air 06/03/17 12:00 Room Air 06/03/17 12:00 37.4 130 20 102/62 (75) 95 Room Air 06/03/17 10:00 118 21 84/64 (71) 97 Room Air Last 24 Hours Test 06/03/17 10:53 06/03/17 11:32 06/04/17 01:32 06/04/17 03:57 Procalcitonin 0.54 ng/ml Bedside Glucose 107 mg/dl 112 mg/dl White Blood Count 16.77 K/uL Red Blood Count 3.29 M/uL Hemoglobin 9.9 g/dL Hematocrit 29.0 % Mean Corpuscular Volume 88.1 fL Mean Corpuscular Hemoglobin 30.1 pg Mean Corpuscular Hemoglobin Concent 34.1 g/dl RDW Standard Deviation 44.6 fL RDW Coefficient of Variation 13.7 % Platelet Count 142 K/uL Mean Platelet Volume 10.1 fL Sodium Level 136 mmol/L Potassium Level 3.6 mmol/L Chloride Level 109 mmol/L Carbon Dioxide Level 24 mmol/L Anion Gap 3.0 mmol/L Blood Urea Nitrogen 4 mg/dl Creatinine 0.49 mg/dl Est Creatinine Clear Calc Drug Dose 209.0 ml/min Estimated GFR () > 150.0 Estimated GFR (Non- 138.3 BUN/Creatinine Ratio 7.3 Random Glucose 96 mg/dl Calcium Level 8.3 mg/dl Phosphorus Level 2.5 mg/dl Magnesium Level 1.9 mg/dl Normal US Renal US: mild hydronephrosis BL, no calculus seen Blood cxs negative Urine cx pending PE: Alert orientedX3, NAD, sitting with her snacks, chips, coke Abd: soft, NT, gravid Back: left CVAT+, none on the right side Ext; NT, no edema AP: 22 yo at 28.2 wks admitted for UTI/ PN/ Sepsis, received 2 doses of IV AB VSS Afebrile > 24 hours Doing better clinically Discussed with ICU attending, Dr. Chanel and plan to transfer to OB unit, [facility] to oral AB, await urine cx and Possible D/C home tomorrow
--- NOTE | 2017-06-04 08:56 | Critical Care Progress Note ---
Critical Care Progress Note Date of Service Jun 04, 2017. ICU Day ICU Day Number: [address] Chanel Subjective Asymptomatic, no fevers, no chest pain no shortness of breath. Objective General: Alert. nontoxic. Skin: Warm, dry, Head: Atraumatic Ears, nose, mouth and throat: airway patent Cardiovascular: Normal peripheral perfusion Respiratory: no respiratory distress Gastrointestinal: Non distended Musculoskeletal: No deformity Assessment & Plan PLAN: CV: Tachycardia -Likely physiologic of Fluids/Renal: Urinary tract infection versus pyelonephritis -Attempt to obtain culture results from [facility] today ID: Convert Rocephin to oral Keflex GI/Nutrition: Tolerating diet Heme: Patient ambulating every 4-6 hours, low risk for venous thromboembolism no strong indications for chemical prophylaxis at this time Endocrine: Blood sugars within acceptable limits Vascular access: Peripheral IVs Code Status: Full Stable for downgrade to women and children's unit Data Medications: Current Inpatient Medications Medications (Trade) Dose Ordered Sig/Josue Route Start Time Stop Time Status Last Admin Dose Admin Ceftriaxone Sodium 1 gm/ Dextrose 50 ml @ 100 mls/hr Q24H IV 06/03/17 20:00 06/13/17 19:59 06/03/17 19:59 100 MLS/HR Acetaminophen 650 mg/Empty Bag 65 ml @ 260 mls/hr Q6H PRN IV 06/03/17 01:00 07/03/17 00:59 06/04/17 08:17 260 MLS/HR Prenat Multivit/ [place]/Iron/Folic Ac ( Vitamin Tab) 1 tab QAM PO 06/03/17 09:00 07/03/17 08:59 06/04/17 07:51 1 TAB Magnesium Oxide (Mag-Ox Tab) 400 mg QPM PO 06/03/17 21:00 07/03/17 20:59 06/03/17 19:59 400 MG Calcium Carbonate (Tums Chew Tab) 500 mg Q6H PRN PO 06/03/17 10:45 07/03/17 10:44 Ferrous Sulfate (Feosol Tab) 325 mg QAM PO 06/04/17 09:00 07/04/17 08:59 Cephalexin Monohydrate (Keflex Cap) 500 mg QID PO 06/04/17 09:00 06/14/17 08:59 UNV Vital Signs: Date Time Temp Pulse Resp B/P (MAP) Pulse Ox O2 Delivery O2 Flow Rate FiO2 06/04/17 08:00 36.8 109 20 113/77 (89) 97 Room Air 06/04/17 08:00 Room Air 06/04/17 06:00 98 20 82/57 (65) 97 06/04/17 04:00 36.7 99 17 87/46 (60) 97 06/04/17 04:00 96 Room Air 06/04/17 02:00 98 19 109/67 (81) 06/04/17 00:00 37.8 119 22 116/66 (83) 96 06/03/17 23:59 97 Room Air 06/03/17 22:00 113 23 106/66 (79) 95 Room Air 06/03/17 20:00 36.9 112 22 120/61 (80) 97 Room Air 06/03/17 20:00 96 Room Air 06/03/17 18:00 125 22 115/60 (78) 94 Room Air 06/03/17 16:00 Room Air 06/03/17 16:00 37.6 126 25 130/72 (91) 95 Room Air 06/03/17 14:00 110 21 115/62 (79) 97 Room Air 06/03/17 12:00 Room Air 06/03/17 12:00 37.4 130 20 102/62 (75) 95 Room Air 06/03/17 10:00 118 21 84/64 (71) 97 Room Air Laboratory Results: Last 24 Hours Test 06/03/17 10:53 06/03/17 11:32 06/04/17 01:32 06/04/17 03:57 Procalcitonin 0.54 ng/ml Bedside Glucose 107 mg/dl 112 mg/dl White Blood Count 16.77 K/uL Red Blood Count 3.29 M/uL Hemoglobin 9.9 g/dL Hematocrit 29.0 % Mean Corpuscular Volume 88.1 fL Mean Corpuscular Hemoglobin 30.1 pg Mean Corpuscular Hemoglobin Concent 34.1 g/dl RDW Standard Deviation 44.6 fL RDW Coefficient of Variation 13.7 % Platelet Count 142 K/uL Mean Platelet Volume 10.1 fL Sodium Level 136 mmol/L Potassium Level 3.6 mmol/L Chloride Level 109 mmol/L Carbon Dioxide Level 24 mmol/L Anion Gap 3.0 mmol/L Blood Urea Nitrogen 4 mg/dl Creatinine 0.49 mg/dl Est Creatinine Clear Calc Drug Dose 209.0 ml/min Estimated GFR () > 150.0 Estimated GFR (Non- 138.3 BUN/Creatinine Ratio 7.3 Random Glucose 96 mg/dl Calcium Level 8.3 mg/dl Phosphorus Level 2.5 mg/dl Magnesium Level 1.9 mg/dl
[2017-06-04] MEDS ORDERED: FERROUS SULFATE 325 MG TAB PO SCH (09:00)
[2017-06-04] MEDS: CEPHALEXIN MONOHYDRATE 500 MG CAP PO SCH ×4 (09:30→21:08)
[2017-06-04] MEDS: ACETAMINOPHEN 325 MG TAB PO PRN ×2 (14:35→18:42)
[2017-06-04] MEDS: MAGNESIUM OXIDE 400 MG TAB PO SCH (21:08)
[2017-06-05 00:25] VITALS: BP 105/64; PULSE 84; TEMP 36.4; O2SAT 96
[2017-06-05 04:10] VITALS: BP 106/62; PULSE 86; TEMP 36.4; O2SAT 98
[2017-06-05] MEDS: ACETAMINOPHEN 325 MG TAB PO PRN (06:15)
[2017-06-05 07:55] VITALS: BP 106/66; PULSE 88; TEMP 36.6; O2SAT 98
[2017-06-05] MEDS: CEPHALEXIN MONOHYDRATE 500 MG CAP PO SCH (08:37)
[2017-06-05] MEDS: PRENATAL VITAMIN TAB PO SCH (08:37)
[2017-06-05] MEDS ORDERED: ACET-1256 PO (09:59)
[2017-06-05] MEDS ORDERED: FRRS300 PO (09:59)
[2017-06-05] MEDS ORDERED: CEPH500C2 PO (09:59)
--- NOTE | 2017-06-05 10:00 | Discharge Instructions ---
Discharge Instructions Date of Service Jun 05, 2017. Admission Reason for Admission: Sepsis, Uti Discharge Discharge Diagnosis / Problem: UTI, PN Discharge Goals Goal(s): Continuing OB care Medications Continue Dispensed Medications: other Activity Recommendations Activity Limitations: as noted below ACTIVITY RECOMMENDATIONS: See Labor Sheet. SPECIAL CARE INSTRUCTIONS: Call Doctor if: * Regular contractions every 5 minutes or greater than contractions in one hour. * Bleeding * Water breaks or is leaking * Decreased movement * Fever >100.4 degrees F * Pain not relieved by routine measures or pain medication ordered. FOLLOW UP VISIT: Return to Labor and Delivery on for /call for appointment time . Follow-up Visit with: OFFICE CALL [phone] When: THIS WEEK . Current Hospital Diet Patient's current hospital diet: Regular OB Diet Discharge Diet Recommended Diet: Regular Diet Pending Studies Studies pending at discharge: no Medical Emergencies . Who to Call and When: Medical Emergencies: If at any time you feel your situation is an emergency, please call 911 immediately. . Non-Emergent Contact Non-Emergency issues call your: Specialist Call Non-Emergent contact if: temperature is above 100.5, your pain is not controlled . . "Provider Documentation" section prepared by Cathy Barrett. .
[2017-06-05 10:42] LABS: EOS % 0.4 %; EOS ABS # 0.04 K/uL (0-0.5); HEMATOCRIT 30.4 % (37-47); HEMOGLOBIN 10.3 g/dL (12.0-16.0); IG# 0.03 K/uL (0.00-0.02); LYMPH % 13.2 %; LYMPH ABS # 1.23 K/uL (1.2-3.4); MEAN CELL VOLUME 89.1 fL (80-100); MEAN CORPUSCULAR HEMOGLOBIN 30.2 pg (25-34); MEAN PLATELET VOLUME 9.6 fL (7.4-10.4); MONO % 7.6 %; MONO ABS # 0.71 K/uL (0.11-0.59); NEUT % 78.5 %; NEUT ABS # 7.31 K/uL (1.4-6.5); PLATELET COUNT 154 K/uL (130-400); RED CELL DISTRIBUTION WIDTH CV 13.8 % (11.5-14.5); RED CELL DISTRIBUTION WIDTH SD 45.5 fL (36.4-46.3); WHITE BLOOD COUNT 9.32 K/uL (4.8-10.8)
[2017-06-05 10:47] LABS: MEAN CORPUSCULAR HGB CONC 33.9 g/dl (32-36)
[2017-06-05 11:13] VITALS: BP 106/66; PULSE 88; TEMP 36.6; O2SAT 98
--- NOTE | 2017-06-05 11:20 | OB/GYN Progress Note ---
REPORT DEVELOPER Progress Note Date of Service: Jun 05, 2017. Late entry from 10 am Patient is reevaluated She feels much better No fever/ chills on and off No CP/SOB/N&V/ dysuria No ctxs/ LOF/VB +FM's, baby is very active NST's have been reactive Blood cx negative till today MRSA, Influenza cx negative Urine cx: mixed robert I called [facility] for her urine cx results from : E.Coli+, sensitive to everything including Cephalosporins She has been afebrile over 48 hours [facility] came down Last 24 Hours Test 06/05/17 10:31 White Blood Count 9.32 K/uL Red Blood Count 3.41 M/uL Hemoglobin 10.3 g/dL Hematocrit 30.4 % Mean Corpuscular Volume 89.1 fL Mean Corpuscular Hemoglobin 30.2 pg Mean Corpuscular Hemoglobin Concent 33.9 g/dl Platelet Count 154 K/uL Mean Platelet Volume 9.6 fL Neutrophils (%) (Auto) 78.5 % Lymphocytes (%) (Auto) 13.2 % Monocytes (%) (Auto) 7.6 % Eosinophils (%) (Auto) 0.4 % Basophils (%) (Auto) 0.0 % Neutrophils # (Auto) 7.31 K/uL Lymphocytes # (Auto) 1.23 K/uL Monocytes # (Auto) 0.71 K/uL Eosinophils # (Auto) 0.04 K/uL Basophils # (Auto) 0.00 K/uL RDW Standard Deviation 45.5 fL RDW Coefficient of Variation 13.8 % Immature Granulocyte % (Auto) 0.3 % Immature Granulocyte # (Auto) 0.03 K/uL AP: 22 yo at 28.2 wks admitted for UTI/ PN/ Sepsis, received 2 doses of IV AB, on oral AB's, hd# 4 VSS Afebrile > 48 hours Plan to d/c home and f/u in office Continue with Keflex for 7 days, repeat cx after completion of therapy Patient understands the plan All questions were answered
== END 2017-06-05 11:35 | disposition home or self-care (01) | DRG 781 ==
LOC: C.EDB 21:32 → C.MSICU 06-03 00:58 → ENRESERV 06-03 01:11 → C.MS4N 06-04 10:38
PROVIDERS: ADMIT Obstetrics & Gynecology; ATTEND Obstetrics & Gynecology
DX: O98.813 Other maternal infectious and parasitic diseases complicating pregnancy, third trimester (principal); A41.51 Sepsis due to Escherichia coli [E. coli]; O23.03 Infections of kidney in pregnancy, third trimester; N13.6 Pyonephrosis; O09.33 Supervision of pregnancy with insufficient antenatal care, third trimester; O99.333 Smoking (tobacco) complicating pregnancy, third trimester; F17.200 Nicotine dependence, unspecified, uncomplicated; Z3A.28 28 weeks gestation of pregnancy; Z83.3 Family history of diabetes mellitus; Z84.1 Family history of disorders of kidney and ureter; Z84.89 Family history of other specified conditions

== ENCOUNTER 2019-07-27 01:19 | Observation (INO) ==
[2019-07-27] MEDS ORDERED: ACETAMINOPHEN 1,000 MG/100 ML VIAL IV STA (02:05)
[2019-07-27] MEDS ORDERED: VANCOMYCIN CONSULT ACTIVE PRN ×2 (02:05→06:17)
[2019-07-27] MEDS ORDERED: VANCOMYCIN HCL 1,500 MG in SODIUM CHLORIDE 0.9% 500 ML IV ONE (02:05)
[2019-07-27] MEDS ORDERED: KETOROLAC TROMETHAMINE 15 MG/ML VIAL IV STA (02:05)
[2019-07-27] MEDS ORDERED: SODIUM CHLORIDE 0.9% 1000ML 1,000 ML IV SCH (02:15)
[2019-07-27 03:04] LABS: Basophils # (auto) 0.01 K/uL (0-0.2); Basophils % (auto) 0.1 %; Eosinophils # (auto) 0.04 K/uL (0-0.5); Eosinophils % (auto) 0.3 %; Immature Granulocytes # (auto) 0.02 K/uL (0.00-0.02); Immature Granulocytes % (auto) 0.1 %; Lymphocytes # (auto) 1.98 K/uL (1.2-3.4); Lymphocytes % (auto) 13.5 %; Mean Corpuscular Hemoglobin 29.7 pg (25-34); Mean Corpuscular Hgb Conc 34.1 g/dL (32-36); Mean Corpuscular Volume 86.9 fL (80-100); Mean Platelet Volume 10.2 fL (7.4-10.4); Monocytes # (auto) 1.02 K/uL (0.11-0.59); Neutrophils # (auto) 11.59 K/uL (1.4-6.5); Platelet Count 177 K/uL (130-400); RDW Coefficient of Variation 13.9 % (11.5-14.5); RDW Standard Deviation 44.9 fL (36.4-46.3); Red Blood Count 4.72 M/uL (4.2-5.4); White Blood Count 14.66 K/uL (4.8-10.8)
[2019-07-27 03:09] LABS: Appearance Urine Cloudy (Clear); Bacteria Urine Automated 3+ (Negative); Bilirubin Urine Negative (Negative); Blood Urine 3+ (Negative); Color Urine Dark Yellow; Epithelial Cell Urine Auto >30 /lpf (0-5); Glucose Urine UA Negative (Negative); Ketones Urine Trace (Negative); Leukocyte Esterase Urine Trace (Negative); Nitrite Urine Positive (Negative); Protein Urine Trace (Negative); Specific Gravity Urine 1.033 (1.000-1.030); Urobilinogen Urine Negative (Negative); pH Urine 5.5 (4.5-7.5)
[2019-07-27 03:22] LABS: Alanine Aminotransferase 17 U/L (12-78); Albumin Level 3.9 gm/dl (3.4-5.0); Aspartate Aminotransferase 9 U/L (15-37); BUN Creatinine Ratio 10.7 (10-20); Blood Urea Nitrogen 10 mg/dl (7-18); Calcium 9.1 mg/dl (8.5-10.1); Carbon Dioxide 26 mmol/L (21-32); Chloride 105 mmol/L (98-107); Creatinine Clr Calc Pharmacy 95.5 ml/min; Est GFR (Non-African American) 87.2; Glucose 96 mg/dl (70-99); Potassium 3.1 mmol/L (3.5-5.1); Sodium 138 mmol/L (136-145)
[2019-07-27 03:27] LABS: Albumin Globulin Ratio 0.9 (0.9-2); Alkaline Phosphatase 86 U/L (45-117); Bilirubin,Total 0.4 mg/dl (0.2-1); Globulin 4.4 gm/dl (2.5-4.0); Total Protein 8.3 gm/dl (6.4-8.2); Troponin I < 0.015 ng/ml (0-0.045)
[2019-07-27 03:32] LABS: Amphetamines+Metham, Urine Pos (Neg); Barbiturates, Urine Neg (Neg); Benzodiazepine, Urine Neg (Neg); Cocaine, Urine Pos (Neg); MDMA (Ecstacy), Urine Pos (Neg); Methadone, Urine Neg (Neg); Opiate, Urine Neg (Neg); Phencyclidine, Urine Neg (Neg)
[2019-07-27 03:34] LABS: Calcium Oxalate Crystals Urine Present (None Prsent)
--- NOTE | 2019-07-27 04:35 | Emergency Department Note ---
History of Present Illness General Chief complaint: Skin Problem Stated complaint: ABCESS ON BOTH ARMS - RT ONE SWELLING Time Seen by Provider: 07/27/19 01:30 History of Present Illness Maximum Pain Intensity: 8 This is a 24-year-old female presenting to the emergency department for evalu ation of pain and swelling to her right arm. The patient admits to injecting drugs 4 days ago into this space, and 3 days ago she began with pain and swelling. She is now having significant redness and difficulty bending and extending at the elbow. She does not report fevers or chills. No chest pain, chest tightness, or shortness of breath. She does have pain coming up her arm into her axilla. She rates her current discomfort an 8/10. She has not taken anything [id number] for her pain. Home Medications Home Medications Medication Instructions Recorded Confirmed Type No Known Home Medications 07/27/19 07/27/19 History Allergies Allergy/AdvReac Type Severity Reaction Status Date / Time No Known Allergies Allergy NONE Unverified 07/27/19 01:34 Past Med/Surg History Medical History (Updated 07/27/19 @ 05:39 by Govind Noe PA-C) Abscess of antecubital fossa Amniotic fluid leaking Cellulitis of labia (Resolved) Cocaine abuse IV drug abuse Lumbar radiculopathy (Acute) Methamphetamine abuse Normal labor with 27 completed weeks gestation (Chronic) with 39 completed weeks gestation Pyelonephritis affecting in second trimester (Acute) Sepsis UTI (urinary tract infection) (Resolved) Surgical History No pertinent past surgical history Social History Preferred Language: Yoruba Communication Ability: Effective Marker Machine Required: No Beliefs That Will Affect Care: None Current Living Situation: Homeless Feels Safe at Home: Yes Safety Concerns: Feels Safe At This Time Smoking Status: Current every day smoker Tobacco Type: cigarettes ; Cigarettes Per Day: x2 packs. ; Hx Alcohol Use: No Hx Substance Use: Yes substance use type: methamphetamine Last Used Substance: Days (ago) Last Used Substance Other:: 2 days ago. Review of Systems A total of 10 systems reviewed and were otherwise negative Physical Exam Vital Signs Vital Signs - 24 hr 07/27/19 01:24 07/27/19 04:06 07/27/19 05:10 Temperature 36.9 C Temperature Source Oral Pulse Rate 115 H Pulse Rate [Apical] 80 75 Respiratory Rate 16 16 16 Blood Pressure 123/78 Blood Pressure [Right Arm] 113/88 103/68 Blood Pressure Mean 93 Blood Pressure Mean [Right Arm] 96 79 Blood Pressure Position [Right Arm] Lying Lying Pulse Oximetry 100 99 98 Oxygen Delivery Method Room Air Room Air Room Air Sepsis Recent Fever Within 48 Hours No Sepsis New/Unexplained Change in Mental Status No Sepsis Action Taken by Nursing No Action Required VITALS: Vitals are noted on the nurse's note and reviewed by myself. Vital signs with tachycardia GENERAL: Well-developed, well-nourished, white female, who is in no acute distress and resting comfortably. Patient is cooperative with the examination. HEAD: Normocephalic atraumatic. NECK: Supple without nuchal rigidity. No lymphadenopathy. No thyromegaly. Cervical spine is nontender. HEART: Regular rate and rhythm without murmurs gallops or rubs. LUNGS: Clear to auscultation bilaterally without wheezes, rales or rhonchi. No retractions or accessory muscle use. MUSCULOSKELETAL: Multiple track maldonado and bruising across the bilateral arms. There appears to be abscess/cellulitis of the right antecubital fossa. The cellulitis does extend to the proximal forearm as well as the mid humerus. This area is quite tender on palpation. No obvious palpable cord. Trick Rodeo Rider strength is 5/5. There may be a much smaller cellulitis of the left antecubital fossa. M ultiple bruises are noted on the legs. NEURO: Patient was alert and oriented to person place and time. CN II through XII grossly intact. Course Administered Medications Discontinued Medications Sodium Chloride (Nss 1000ml) 1,000 mls @ 999 mls/hr IV .[id number] ELIZABETH Stop: 07/27/19 03:15 Last Infusion: 07/27/19 04:52 Dose: 0 mls/hr Documented by: [id number] Admin: 07/27/19 02:52 Dose: 999 mls/hr Documented by: [id number] Vancomycin HCl 1,500 mg/ (Sodium Chloride) 530 mls @ 200 mls/hr IV NOW ONE Stop: 07/27/19 04:43 Last Admin: 07/27/19 04:06 Dose: 200 mls/hr Documented by: [id number] Acetaminophen (Ofirmev) 1,000 mg in 100 mls @ 400 mls/hr IV NOW STA Stop: 07/27/19 02:19 Last Infusion: 07/27/19 04:53 Dose: 0 mls/hr Documented by: [id number] Admin: 07/27/19 02:53 Dose: 400 mls/hr Documented by: [id number] Ketorolac Tromethamine (Toradol) 15 mg IV NOW STA Stop: 07/27/19 02:06 Last Admin: 07/27/19 03:20 Dose: 15 mg Documented by: [id number] Potassium Chloride (Klor-Con M20) 40 meq PO NOW STA Stop: 07/27/19 05:34 Last Admin: 07/27/19 06:42 Dose: 40 meq Documented by: [id number] Medical Decision Making Differential Diagnosis Differential diagnosis includes: Etiologies such as IV drug abuse, cellulitis, abscess, osteomyelitis, MRSA infection, DVT, necrotizing fasciitis, dermatitis, drug eruption, as well as others were entertained Laboratory Data Result diagrams: 07/27/19 02:48 07/27/19 02:48 Lab Results 07/27/19 07/27/19 07/27/19 Range/Units 02:48 02:48 02:48 WBC 14.66 H (4.8-10.8) K/uL RBC 4.72 (4.2-5.4) M/uL Hgb 14.0 (12.0-16.0) g/dL Hct 41.0 (37-47) % MCV 86.9 (80-100) fL MCH 29.7 (25-34) pg MCHC 34.1 (32-36) g/dL RDW Std Deviation 44.9 (36.4-46.3) fL RDW Coeff of Phill 13.9 (11.5-14.5) % Plt Count 177 (130-400) K/uL MPV 10.2 (7.4-10.4) fL Immature Gran % (Auto) 0.1 % Neut % (Auto) 79.0 % Lymph % (Auto) 13.5 % [place] % (Auto) 7.0 % Eos % (Auto) 0.3 % Baso % (Auto) 0.1 % Immature Gran # (Auto) 0.02 (0.00-0.02) K/uL Neut # (Auto) 11.59 H (1.4-6.5) K/uL Lymph # (Auto) 1.98 (1.2-3.4) K/uL [place] # (Auto) 1.02 H (0.11-0.59) K/uL Eos # (Auto) 0.04 (0-0.5) K/uL Baso # (Auto) 0.01 (0-0.2) K/uL ESR 31 H (0-20) mm/hr Sodium (136-145) mmol/L Potassium (3.5-5.1) mmol/L Chloride (98-107) mmol/L Carbon Dioxide (21-32) mmol/L Anion Gap (3-11) BUN (7-18) mg/dl Creatinine (0.6-1.2) mg/dl Est Cr Clr Drug Dosing ml/min Est GFR ( Amer) Est GFR (Non-Af Amer) BUN/Creatinine Ratio (10-20) Glucose (70-99) mg/dl Lactate 1.0 (0.4-2.0) mmol/L Calcium (8.5-10.1) mg/dl Total Bilirubin (0.2-1) mg/dl AST (15-37) U/L ALT (12-78) U/L Alkaline Phosphatase (45-117) U/L Troponin I (0-0.045) ng/ml C-Reactive Protein (0-0.29) mg/dl Total Protein (6.4-8.2) gm/dl Albumin (3.4-5.0) gm/dl Globulin (2.5-4.0) gm/dl Albumin/Globulin Ratio (0.9-2) Urine Color Urine Appearance (Clear) Urine pH (4.5-7.5) Ur Specific [place] (1.000-1.030) Urine Protein (Negative) Urine Glucose (UA) (Negative) Urine Ketones (Negative) Urine Blood (Negative) Urine Nitrite (Negative) Urine Bilirubin (Negative) Urine Urobilinogen (Negative) Ur Leukocyte Esterase (Negative) Urine WBC (Auto) (0-5) /hpf Urine RBC (Auto) (0-4) /hpf U Hyaline Cast (Auto) (0-5) /lpf U Epithel Cells (Auto) (0-5) /lpf Urine Bacteria (Auto) (Negative) Calcium Oxalate Crystal (None Prsent) Urine Yeast POC Ur Test (NEG) Urine Opiates Screen (Neg) Ur Methadone, Qual (Neg) Urine Barbiturates (Neg) Ur Phencyclidine (PCP) (Neg) U Amphetamin/Meth Scrn (Neg) MDMA (Ecstasy) Screen (Neg) U Benzodiazepines Scrn (Neg) Ur Cocaine Metabolite (Neg) U Marijuana (THC) Screen (Neg) 07/27/19 07/27/19 07/27/19 Range/Units 02:48 02:50 02:50 WBC (4.8-10.8) K/uL RBC (4.2-5.4) M/uL Hgb (12.0-16.0) g/dL Hct (37-47) % MCV (80-100) fL MCH (25-34) pg MCHC (32-36) g/dL RDW Std Deviation (36.4-46.3) fL RDW Coeff of Phill (11.5-14.5) % Plt Count (130-400) K/uL MPV (7.4-10.4) fL Immature Gran % (Auto) % Neut % (Auto) % Lymph % (Auto) % [place] % (Auto) % Eos % (Auto) % Baso % (Auto) % Immature Gran # (Auto) (0.00-0.02) K/uL Neut # (Auto) (1.4-6.5) K/uL Lymph # (Auto) (1.2-3.4) K/uL [place] # (Auto) (0.11-0.59) K/uL Eos # (Auto) (0-0.5) K/uL Baso # (Auto) (0-0.2) K/uL ESR (0-20) mm/hr Sodium 138 (136-145) mmol/L Potassium 3.1 L (3.5-5.1) mmol/L Chloride 105 (98-107) mmol/L Carbon Dioxide 26 (21-32) mmol/L Anion Gap 7.0 (3-11) BUN 10 (7-18) mg/dl Creatinine 0.92 (0.6-1.2) mg/dl Est Cr Clr Drug Dosing 95.5 ml/min Est GFR ( Amer) 101.0 Est GFR (Non-Af Amer) 87.2 BUN/Creatinine Ratio 10.7 (10-20) Glucose 96 (70-99) mg/dl Lactate (0.4-2.0) mmol/L Calcium 9.1 (8.5-10.1) mg/dl Total Bilirubin 0.4 (0.2-1) mg/dl AST 9 L (15-37) U/L ALT 17 (12-78) U/L Alkaline Phosphatase 86 (45-117) U/L Troponin I < 0.015 (0-0.045) ng/ml C-Reactive Protein 11.50 H (0-0.29) mg/dl Total Protein 8.3 H (6.4-8.2) gm/dl Albumin 3.9 (3.4-5.0) gm/dl Globulin 4.4 H (2.5-4.0) gm/dl Albumin/Globulin Ratio 0.9 (0.9-2) Urine Color Urine Appearance (Clear) Urine pH (4.5-7.5) Ur Specific [place] (1.000-1.030) Urine Protein (Negative) Urine Glucose (UA) (Negative) Urine Ketones (Negative) Urine Blood (Negative) Urine Nitrite (Negative) Urine Bilirubin (Negative) Urine Urobilinogen (Negative) Ur Leukocyte Esterase (Negative) Urine WBC (Auto) (0-5) /hpf Urine RBC (Auto) (0-4) /hpf U Hyaline Cast (Auto) (0-5) /lpf U Epithel Cells (Auto) (0-5) /lpf Urine Bacteria (Auto) (Negative) Calcium Oxalate Crystal (None Prsent) Urine Yeast POC Ur Test NEG (NEG) Urine Opiates Screen Neg (Neg) Ur Methadone, Qual Neg (Neg) Urine Barbiturates Neg (Neg) Ur Phencyclidine (PCP) Neg (Neg) U Amphetamin/Meth Scrn Pos H (Neg) MDMA (Ecstasy) Screen Pos H (Neg) U Benzodiazepines Scrn Neg (Neg) Ur Cocaine Metabolite Pos H (Neg) U Marijuana (THC) Screen Neg (Neg) 07/27/19 Range/Units 02:50 WBC (4.8-10.8) K/uL RBC (4.2-5.4) M/uL Hgb (12.0-16.0) g/dL Hct (37-47) % MCV (80-100) fL MCH (25-34) pg MCHC (32-36) g/dL RDW Std Deviation (36.4-46.3) fL RDW Coeff of Phill (11.5-14.5) % Plt Count (130-400) K/uL MPV (7.4-10.4) fL Immature Gran % (Auto) % Neut % (Auto) % Lymph % (Auto) % [place] % (Auto) % Eos % (Auto) % Baso % (Auto) % Immature Gran # (Auto) (0.00-0.02) K/uL Neut # (Auto) (1.4-6.5) K/uL Lymph # (Auto) (1.2-3.4) K/uL [place] # (Auto) (0.11-0.59) K/uL Eos # (Auto) (0-0.5) K/uL Baso # (Auto) (0-0.2) K/uL ESR (0-20) mm/hr Sodium (136-145) mmol/L Potassium (3.5-5.1) mmol/L Chloride (98-107) mmol/L Carbon Dioxide (21-32) mmol/L Anion Gap (3-11) BUN (7-18) mg/dl Creatinine (0.6-1.2) mg/dl Est Cr Clr Drug Dosing ml/min Est GFR ( Amer) Est GFR (Non-Af Amer) BUN/Creatinine Ratio (10-20) Glucose (70-99) mg/dl Lactate (0.4-2.0) mmol/L Calcium (8.5-10.1) mg/dl Total Bilirubin (0.2-1) mg/dl AST (15-37) U/L ALT (12-78) U/L Alkaline Phosphatase (45-117) U/L Troponin I (0-0.045) ng/ml C-Reactive Protein (0-0.29) mg/dl Total Protein (6.4-8.2) gm/dl Albumin (3.4-5.0) gm/dl Globulin (2.5-4.0) gm/dl Albumin/Globulin Ratio (0.9-2) Urine Color Dark Yellow Urine Appearance Cloudy A (Clear) Urine pH 5.5 (4.5-7.5) Ur Specific [place] 1.033 H (1.000-1.030) Urine Protein Trace H (Negative) Urine Glucose (UA) Negative (Negative) Urine Ketones Trace H (Negative) Urine Blood 3+ H (Negative) Urine Nitrite Positive A (Negative) Urine Bilirubin Negative (Negative) Urine Urobilinogen Negative (Negative) Ur Leukocyte Esterase Trace H (Negative) Urine WBC (Auto) 1-5 (0-5) /hpf Urine RBC (Auto) 5-10 H (0-4) /hpf U Hyaline Cast (Auto) 5-10 H (0-5) /lpf U Epithel Cells (Auto) >30 H (0-5) /lpf Urine Bacteria (Auto) 3+ H (Negative) Calcium Oxalate Crystal Present A (None Prsent) Urine Yeast Not Reportable POC Ur Test (NEG) Urine Opiates Screen (Neg) Ur Methadone, Qual (Neg) Urine Barbiturates (Neg) Ur Phencyclidine (PCP) (Neg) U Amphetamin/Meth Scrn (Neg) MDMA (Ecstasy) Screen (Neg) U Benzodiazepines Scrn (Neg) Ur Cocaine Metabolite (Neg) U Marijuana (THC) Screen (Neg) Imaging Data Radiologist's Impression: Preliminary Findings Only See Final Report For Complete Findings US EXTREMITY: There is a 3.1 x 2.4 x 2.2 cm complex fluid collection with surrounding hypervascularity in the antecubital fossa. The findings suggest the presence of an abscess. Collection surrounds the vein and there appears to be some areas of non-flow within the antecubital vein suggesting focal thrombosis. Brachial vein appears normal Impression: Complex fluid collection in the antecubital fossa likely reflecting abscess, possibly hematoma. Superficial vein thrombosis in the antecubital vein MDM Narrative Physical exam and history were performed. Nursing notes, EMR, and Medication List were personally reviewed. Patient appears to have likely abscess and cellulitis of the right antecubital space. The patient does have a history of IV drug abuse. IV access was established and labs were obtained. She was hydrated with normal saline and given IV Toradol and IV Tylenol for comfort. She was empirically started on vancomycin after blood cultures were gathered. Ultrasound was performed to further identify her infection. The patient blood work is as above and was reviewed. She does have an elevated white blood cell count of 14,000. She does not have a significant anemia. Lactic acid is normal at 1.0. Sed rate and CRP are both markedly elevated. Urine is negative for , and drug abuse screen is positive for both amphetamines and cocaine. Ultrasound was reviewed by myself and radiology and does appear to show a large antecubital fossa abscess. This does seem somewhat complicated as this is very close to a blood vessel which may be thrombosed. Overall the patient does not appear well for discharge home. She has a large abscess and worsening infection with a high white blood cell count. The patient will likely need surgical intervention before leaving the hospital. The case w as discussed with the on-call hospitalist team who agreed to evaluate the patient here in the ER. Please see their dictation for further patient course, plan, and disposition. The chart was completed utilizing [employer] Speech Voice Recognition Software. Grammatical errors, random word insertions, pronoun errors, and incomplete sentences are an occasional consequence of this system due to software limitations, ambient noise, and hardware issues. Any formal questions or concerns about the content, text, or information contained within the body of this dictation should be directly addressed to the provider for clarification. . Impression & Plan Abscess of skin or subcutaneous tissue, Cocaine abuse, Amphetamine abuse Discharge Plan Visit Data Chief Complaint: Skin Problem Stated Complaint: ABCESS ON BOTH ARMS - RT ONE SWELLING ED Provider: Alina Perales ED Midlevel Provider: Govind Noe Discharge Problem: Abscess of skin or subcutaneous tissue, Cocaine abuse, Amphetamine abuse Discharge Instructions Interventions: ED Discharge Assessment Last Done: 07/27/19 06:18 Discharge Problem: Abscess of skin or subcutaneous tissue Qualifiers: Site of cutaneous abscess: extremity Site of cutaneous abscess of extremity: unspecified Qualified Code(s): L02.419 - Cutaneous abscess of limb, unspecified
[2019-07-27] MEDS ORDERED: POTASSIUM CHLORIDE 20 MEQ TABCR PO STA (05:33)
--- NOTE | 2019-07-27 05:39 | History & Physical Report ---
Date of Service July 27, 2019 Assessment & Plan (1) Abscess of skin or subcutaneous tissue: Pt is a 24yo with a stated PMHx of anxiety and depression (not currently on medication) who presents with right arm abscess and superficial thrombophlebitis secondary to IV drug use. R arm abscess in the setting of IV drug abuse -Pt with 5/10 pain in right arm, redness, swelling and associated numbness -afebrile, hemodynamically stable, WBC increased -Ultrasound of R upper extremity reading by [facility]: -"There is a 3.1 x 2.4 x 2.2 cm complex fluid collection with surrounding hypervascularity in the antecubital fossa. The findings suggest the presence of an abscess.Collection surrounds the vein and there appears to be some areas of non-flow within the antecubital vein suggesting focal thrombosis. Brachial vein appears normal. Impression: Complex fluid collection in the antecubital fossa likely reflecting abscess, possibly hematoma. Superficial vein thrombosis in the antecubital vein" -Follow official read of elbow xray- consider possibility of osteomyelitis though appears less likely -Blood cultures pending -admitted to med/surg -Vancomycin and Zosyn ordered -Consult placed to General Surgery for possible surgical I&D -NPO for possible procedure -Echo ordered for evaluation of possible endocarditis -Scheduled IV tylenol 1000mg q8h and PRN IV Toradol 15mg q6h for pain -Discharge planning consult placed to CM as pt states she is homeless -Consider psych consult for Hx of drug abuse -Per pt's request, mother contacted and informed that pt was hospitalized Superficial Thrombophlebitis in R antecubital vein -US of R extremity notes superficial vein thrombosis in the antecubital vein -Length of clot is not noted but if on formal read <5cm, consider treatment with NSAID such as ibuprofen -If greater than 5cm, consider anticoagulation -Keep arm elevated above the waist -consider warm compress application to the arm -Encourage pt ambulation Hypokalemia -replete as needed Hx of depression and anxiety -Pt states she is not suicidal -States she has these diagnoses but not on current medication for treatment -consider psych consult Hx of IV drug abuse -Pt states she has been injecting for the last 2 years -Tox screen shows use of methamphetamines, cocaine and ecstasy -Pt states she injects meth; denies using cocaine and ecstasy -States she uses clean needles (recently bought a box) and adamant that she does not share them -Ambivalent as to whether she wants help to stop using -States mother has custody of her 3 children and she is ok with that as she deals with her "problems" -Currently homeless, was staying with a stranger who became a friend for the last 2 weeks, but the friend was recently incarcerated. -No partner currently; states father of her last two children also incarcerated. -CM consult placed for help with rehab if pt desirous -consider psych consult FEN/GI: NPO for procedure DVT prophylaxis: Strongly encourage ambulation CODE STATUS: Full Dispo: Med/Surg History of Present Illness Primary Care Provider: CYRIL Argueta Pt is a 24yo with a stated PMHx of anxiety and depression (not currently on medication) who presents with right arm abscess and superficial thrombophlebitis secondary to IV drug use. States she injected methamphetamines into the arm about 2 days ago, but denies knowingly using cocaine or ecstasy. States she has been injecting for the last 2 years, dabbled with other recreational drug use before that. States she has 3 children who are currently with her mother who has full custody. States she is currently homeless, was living with a stranger turned friend who got incarcerated. States that she has no support system as her family has abandoned her, and the father of her last 2 children is also incarcerated. Wanted me to contact her mother however, to let her know that she was hospitalized. PMHx: Anxiety and Depression, IV drug abuse Meds: None SH: Currently homeless, smokes 1ppd, injects methamphetamines, denies alcohol use. ED Course: NSS, Tylenol and Toradol for pain, loading dose of Vancomycin Allergies Allergy/AdvReac Type Severity Reaction Status Date / Time No Known Allergies Allergy NONE Unverified 07/27/19 01:34 Home Medications Home Medications Medication Instructions Recorded Confirmed Type No Known Home Medications 07/27/19 07/27/19 History Past Med/Surg History Medical History (Updated 07/27/19 @ 05:39 by Govind Noe PA-C) Abscess of antecubital fossa Amniotic fluid leaking Cellulitis of labia (Resolved) Cocaine abuse IV drug abuse Lumbar radiculopathy (Acute) Methamphetamine abuse Normal labor with 27 completed weeks gestation (Chronic) with 39 completed weeks gestation Pyelonephritis affecting in second trimester (Acute) Sepsis UTI (urinary tract infection) (Resolved) Surgical History No pertinent past surgical history Social History Preferred Language: Estonian Communication Ability: Effective Rehab Liaison Required: No Beliefs That Will Affect Care: None Current Living Situation: Homeless Feels Safe at Home: Yes Safety Concerns: Feels Safe At This Time Smoking Status: Current every day smoker Tobacco Type: cigarettes ; Cigarettes Per Day: x2 packs. ; Hx Alcohol Use: No Hx Substance Use: Yes substance use type: methamphetamine Last Used Substance: Days (ago) Last Used Substance Other:: 2 days ago. Review of Systems Constitutional: + fatigue; no fever, no chills and no sweats Eyes: no worsening vision Ear, Nose, Mouth, Throat: no nasal congestion and no sore throat Respiratory: no cough and no dyspnea Cardiovascular: no chest pain, no dyspnea, no edema and no calf pain Gastrointestinal: no abdominal pain, no nausea, no vomiting, no constipation and no diarrhea/loose stools Musculoskeletal: + swelling Integumentary: + erythema, + skin swelling and + unusual bruising (on left arm) Neurologic: + numbness; no headache(s) Psychiatric: + depression, + anxiety and + substance abuse; no suicidal ideation Endocrine: + fatigue Physical Exam Physical Exam: General: Laying in bed, drowsy but arousable. No acute distress Skin: R arm with swelling, redness, warmth in antecubital fossa, tender to palpation. Noted bruising on L arm as well. Psych: drowsy, depressed Neuro: No gross deficits HEENT: NC/AT, mask on face Chest: Nontender to palpation. CV: RRR, Normal s1, s2. No murmurs appreciated Resp: Breath sounds clear bilaterally, no increased effort of breathing. Abdomen: Soft, nontender, nondistended. Extremities: R arm painful with extension and flexion. R arm swelling, redness, warmth in antecubital fossa, tender to palpation. Noted bruising on L arm as well. Results & Data Results & Data ([facility]) Vital Signs (Past 12 Hours) Vital Signs Temp Pulse Pulse Resp BP BP Pulse Ox 07/27/19 05:10 75 16 103/68 98 07/27/19 04:06 80 16 113/88 99 07/27/19 01:24 36.9 C 115 H 16 123/78 100 Code Status & VTE Plan VTE Prophylaxis Plan VTE Prophylaxis will be ordered: No Supervising Physician Co-Signing Physician Notes Attending addendum: I have physically seen this patient, have supervised the medical residents activities, and agree with the H&P unless as otherwise noted. Assessment and Plan: Cellulitis/abscess of right upper extremity- Secondary to skin injections. Vancomycin IV and Zosyn IV Follow blood cultures. NPO Consult general surgery. Order complete echocardiogram to assess for possible endocarditis and a injection drug user. Acetaminophen 1 g IV every 8 hours PRN mild pain or temperature. Toradol 15 mg IV every 6 as PRN moderate pain. Avoid narcotics. History of IV drug abuse- Urine drug screen positive for amphetamines, MDMA and cocaine. Consult psychiatry. Consult social service manager Remaining orders and notations as noted. Resident Activity Tracking Resident Involvement: Resident Care Provided Care Provided: Adult Hospital Medicine (1) Abscess of skin or subcutaneous tissue Site of cutaneous abscess: extremity Site of cutaneous abscess of extremity: unspecified Qualified Code(s): L02.419 - Cutaneous abscess of limb, unspecified
[2019-07-27] MEDS ORDERED: KETOROLAC TROMETHAMINE 15 MG/ML VIAL IV PRN (06:17)
[2019-07-27] MEDS ORDERED: PIPERACILL/TAZOBAC CONSULT ACTIVE PRN (06:17)
--- NOTE | 2019-07-27 06:41 | XRay Report ---
XR elbow RT min 3V routine HISTORY: 24 years-old Female right antecubital abscess/ivda acute pain and soft tissue swelling of t he right elbow COMPARISON: CT right elbow 03/22/2019 TECHNIQUE: 3 views of the right elbow FINDINGS: Moderate soft tissue swelling is noted within the volar tissues. No acute fracture, dislocation, opaq ue foreign body, significant degenerative change or large joint effusion. IMPRESSION: Soft tissue swelling without fracture or opaque foreign body. ACT 112: Negative or not required by law. The above report was generated using voice recognition software. It may contain grammatical, syntax o r spelling errors. Electronically signed by: Angel Ross M.D. 07/27/2019 6:40 AM
[2019-07-27] MEDS ORDERED: PIPERACILLIN/TAZOBACTAM 3.375 GM in DEXTROSE 5% 100 ML IV ONE (06:45)
--- NOTE | 2019-07-27 06:54 | Ultrasound Report ---
RIGHT UPPER EXTREMITY ULTRASOUND CLINICAL HISTORY: right arm abscess/cellulitis antecubital area COMPARISON STUDY: Right upper extremity venous Doppler ultrasound and CT of the right elbow March 22, 2019. TECHNIQUE: Sonography of the right antecubital fossa was performed. FINDINGS: Within the right antecubital fossa, note is made of a complex subcutaneous fluid collection that measures 4 x 2.2 x 3.1 cm. Hypervascularity of the adjacent soft tissues is noted. Note is made of superficial thrombus within the right antecubital vein which is surrounded by the abscess. The ri ght brachial vein is patent. IMPRESSION: 1. 4 x 2.2 x 3.1 cm complex fluid collection within the right antecubital fossa consistent with an ab scess. 2. Superficial thrombus within the right antecubital vein which is surrounded by the abscess. ACT 112: Negative or not required by law. Electronically signed by: James Velásquez M.D. 07/27/2019 6:53 AM
--- NOTE | 2019-07-27 09:24 | Surgery Consultation ---
Date of Consultation July 27, 2019 Assessment & Plan (1) Abscess of skin or subcutaneous tissue: This patient has what is probably a subcutaneous abscess from IV drug injection. She does not think that there was a needle broken off. She will need to go to the operating room for incision and drainage. She has had an abscess in this site in the past. She has signed a consent form. History of Present Illness Requesting Physician: Ceasar Neves MD Attending Physician: Ceasar Neves MD Allergies Allergy/AdvReac Type Severity Reaction Status Date / Time No Known Allergies Allergy NONE Unverified 07/27/19 01:34 Home Medications Home Medications Medication Instructions Recorded Confirmed Type No Known Home Medications 07/27/19 07/27/19 History Patient History Medical History (Updated 07/27/19 @ 05:39 by Govind Noe PA-C) Abscess of antecubital fossa Amniotic fluid leaking Cellulitis of labia (Resolved) Cocaine abuse IV drug abuse Lumbar radiculopathy (Acute) Methamphetamine abuse Normal labor with 27 completed weeks gestation (Chronic) with 39 completed weeks gestation Pyelonephritis affecting in second trimester (Acute) Sepsis UTI (urinary tract infection) (Resolved) Surgical History No pertinent past surgical history Social History Preferred Language: Croatian Communication Ability: Effective Licensed Physical Therapy Assistant Required: No Beliefs That Will Affect Care: None Current Living Situation: Homeless Feels Safe at Home: Yes Safety Concerns: Feels Safe At This Time Smoking Status: Current every day smoker Tobacco Type: cigarettes ; Cigarettes Per Day: x2 packs. ; Hx Alcohol Use: No Hx Substance Use: Yes substance use type: methamphetamine Last Used Substance: Days (ago) Last Used Substance Other:: 2 days ago. Review of Systems Review of Systems: All systems reviewed & are unremarkable except as noted in HPI & below Physical Exam Constitutional: no acute distress Respiratory: normal respiratory effort, lungs clear to auscultation Cardiovascular: Rate/Rhythm: regular rate and regular rhythm Gastrointestinal (Abdomen): Inspection/Auscultation: abdomen not distended Percussion/Palpation: abdomen nontender Musculoskeletal: Swelling with erythema and tenderness measuring approximately 3 x 3 cm above the antecubital fossa of the right arm. It is tender. Lymphatic: no cervical lymphadenopathy Results & Data Vital Signs (Past 12 Hours) Vital Signs Temp Pulse Pulse Pulse Resp BP BP 07/27/19 07:07 36.7 C 83 20 109/69 07/27/19 06:20 36.6 C 93 H 16 127/81 07/27/19 06:18 84 18 111/74 07/27/19 05:10 75 16 103/68 07/27/19 04:06 80 16 113/88 07/27/19 01:24 36.9 C 115 H 16 123/78 Pulse Ox 07/27/19 07:07 100 07/27/19 06:20 97 07/27/19 06:18 98 07/27/19 05:10 98 07/27/19 04:06 99 07/27/19 01:24 100 Laboratory Results 07/27/19 07/27/19 07/27/19 Range/Units 02:50 02:50 02:50 WBC (4.8-10.8) K/uL RBC (4.2-5.4) M/uL Hgb (12.0-16.0) g/dL Hct (37-47) % MCV (80-100) fL MCH (25-34) pg MCHC (32-36) g/dL RDW Std Deviation (36.4-46.3) fL RDW Coeff of Phill (11.5-14.5) % Plt Count (130-400) K/uL MPV (7.4-10.4) fL Immature Gran % (Auto) % Neut % (Auto) % Lymph % (Auto) % Mora % (Auto) % Eos % (Auto) % Baso % (Auto) % Immature Gran # (Auto) (0.00-0.02) K/uL Neut # (Auto) (1.4-6.5) K/uL Lymph # (Auto) (1.2-3.4) K/uL Mora # (Auto) (0.11-0.59) K/uL Eos # (Auto) (0-0.5) K/uL Baso # (Auto) (0-0.2) K/uL ESR (0-20) mm/hr Sodium (136-145) mmol/L Potassium (3.5-5.1) mmol/L Chloride (98-107) mmol/L Carbon Dioxide (21-32) mmol/L Anion Gap (3-11) BUN (7-18) mg/dl Creatinine (0.6-1.2) mg/dl Est Cr Clr Drug Dosing ml/min Est GFR ( Amer) Est GFR (Non-Af Amer) BUN/Creatinine Ratio (10-20) Glucose (70-99) mg/dl Lactate (0.4-2.0) mmol/L Calcium (8.5-10.1) mg/dl Total Bilirubin (0.2-1) mg/dl AST (15-37) U/L ALT (12-78) U/L Alkaline Phosphatase (45-117) U/L Troponin I (0-0.045) ng/ml C-Reactive Protein (0-0.29) mg/dl Total Protein (6.4-8.2) gm/dl Albumin (3.4-5.0) gm/dl Globulin (2.5-4.0) gm/dl Albumin/Globulin Ratio (0.9-2) Urine Color Dark Yellow Urine Appearance Cloudy A (Clear) Urine pH 5.5 (4.5-7.5) Ur Specific [place] 1.033 H (1.000-1.030) Urine Protein Trace H (Negative) Urine Glucose (UA) Negative (Negative) Urine Ketones Trace H (Negative) Urine Blood 3+ H (Negative) Urine Nitrite Positive A (Negative) Urine Bilirubin Negative (Negative) Urine Urobilinogen Negative (Negative) Ur Leukocyte Esterase Trace H (Negative) Urine WBC (Auto) 1-5 (0-5) /hpf Urine RBC (Auto) 5-10 H (0-4) /hpf U Hyaline Cast (Auto) 5-10 H (0-5) /lpf U Epithel Cells (Auto) >30 H (0-5) /lpf Urine Bacteria (Auto) 3+ H (Negative) Calcium Oxalate Crystal Present A (None Prsent) Urine Yeast Not Reportable POC Ur Test NEG (NEG) Urine Opiates Screen (Neg) Ur Methadone, Qual (Neg) Urine Barbiturates (Neg) Ur Phencyclidine (PCP) (Neg) U Amphetamines Confirm Pending U Amphetamin/Meth Scrn (Neg) U Methamphetamin Confrm Pending Urine MDEA Pending MDMA (Ecstasy) Screen (Neg) MDMA Pending Urine MDMA Pending U Benzodiazepines Scrn (Neg) U Cocaine Confirm GC/MS Pending Ur Cocaine Metabolite (Neg) U Marijuana (THC) Screen (Neg) Drug Screen Comment Pending 07/27/19 07/27/19 07/27/19 Range/Units 02:50 02:48 02:48 WBC (4.8-10.8) K/uL RBC (4.2-5.4) M/uL Hgb (12.0-16.0) g/dL Hct (37-47) % MCV (80-100) fL MCH (25-34) pg MCHC (32-36) g/dL RDW Std Deviation (36.4-46.3) fL RDW Coeff of Phill (11.5-14.5) % Plt Count (130-400) K/uL MPV (7.4-10.4) fL Immature Gran % (Auto) % Neut % (Auto) % Lymph % (Auto) % Mora % (Auto) % Eos % (Auto) % Baso % (Auto) % Immature Gran # (Auto) (0.00-0.02) K/uL Neut # (Auto) (1.4-6.5) K/uL Lymph # (Auto) (1.2-3.4) K/uL Mora # (Auto) (0.11-0.59) K/uL Eos # (Auto) (0-0.5) K/uL Baso # (Auto) (0-0.2) K/uL ESR 31 H (0-20) mm/hr Sodium 138 (136-145) mmol/L Potassium 3.1 L (3.5-5.1) mmol/L Chloride 105 (98-107) mmol/L Carbon Dioxide 26 (21-32) mmol/L Anion Gap 7.0 (3-11) BUN 10 (7-18) mg/dl Creatinine 0.92 (0.6-1.2) mg/dl Est Cr Clr Drug Dosing 95.5 ml/min Est GFR ( Amer) 101.0 Est GFR (Non-Af Amer) 87.2 BUN/Creatinine Ratio 10.7 (10-20) Glucose 96 (70-99) mg/dl Lactate (0.4-2.0) mmol/L Calcium 9.1 (8.5-10.1) mg/dl Total Bilirubin 0.4 (0.2-1) mg/dl AST 9 L (15-37) U/L ALT 17 (12-78) U/L Alkaline Phosphatase 86 (45-117) U/L Troponin I < 0.015 (0-0.045) ng/ml C-Reactive Protein 11.50 H (0-0.29) mg/dl Total Protein 8.3 H (6.4-8.2) gm/dl Albumin 3.9 (3.4-5.0) gm/dl Globulin 4.4 H (2.5-4.0) gm/dl Albumin/Globulin Ratio 0.9 (0.9-2) Urine Color Urine Appearance (Clear) Urine pH (4.5-7.5) Ur Specific [place] (1.000-1.030) Urine Protein (Negative) Urine Glucose (UA) (Negative) Urine Ketones (Negative) Urine Blood (Negative) Urine Nitrite (Negative) Urine Bilirubin (Negative) Urine Urobilinogen (Negative) Ur Leukocyte Esterase (Negative) Urine WBC (Auto) (0-5) /hpf Urine RBC (Auto) (0-4) /hpf U Hyaline Cast (Auto) (0-5) /lpf U Epithel Cells (Auto) (0-5) /lpf Urine Bacteria (Auto) (Negative) Calcium Oxalate Crystal (None Prsent) Urine Yeast POC Ur Test (NEG) Urine Opiates Screen Neg (Neg) Ur Methadone, Qual Neg (Neg) Urine Barbiturates Neg (Neg) Ur Phencyclidine (PCP) Neg (Neg) U Amphetamines Confirm U Amphetamin/Meth Scrn Pos H (Neg) U Methamphetamin Confrm Urine MDEA MDMA (Ecstasy) Screen Pos H (Neg) MDMA Urine MDMA U Benzodiazepines Scrn Neg (Neg) U Cocaine Confirm GC/MS Ur Cocaine Metabolite Pos H (Neg) U Marijuana (THC) Screen Neg (Neg) Drug Screen Comment 07/27/19 07/27/19 Range/Units 02:48 02:48 WBC 14.66 H (4.8-10.8) K/uL RBC 4.72 (4.2-5.4) M/uL Hgb 14.0 (12.0-16.0) g/dL Hct 41.0 (37-47) % MCV 86.9 (80-100) fL MCH 29.7 (25-34) pg MCHC 34.1 (32-36) g/dL RDW Std Deviation 44.9 (36.4-46.3) fL RDW Coeff of Phill 13.9 (11.5-14.5) % Plt Count 177 (130-400) K/uL MPV 10.2 (7.4-10.4) fL Immature Gran % (Auto) 0.1 % Neut % (Auto) 79.0 % Lymph % (Auto) 13.5 % Mora % (Auto) 7.0 % Eos % (Auto) 0.3 % Baso % (Auto) 0.1 % Immature Gran # (Auto) 0.02 (0.00-0.02) K/uL Neut # (Auto) 11.59 H (1.4-6.5) K/uL Lymph # (Auto) 1.98 (1.2-3.4) K/uL Mora # (Auto) 1.02 H (0.11-0.59) K/uL Eos # (Auto) 0.04 (0-0.5) K/uL Baso # (Auto) 0.01 (0-0.2) K/uL ESR (0-20) mm/hr Sodium (136-145) mmol/L Potassium (3.5-5.1) mmol/L Chloride (98-107) mmol/L Carbon Dioxide (21-32) mmol/L Anion Gap (3-11) BUN (7-18) mg/dl Creatinine (0.6-1.2) mg/dl Est Cr Clr Drug Dosing ml/min Est GFR ( Amer) Est GFR (Non-Af Amer) BUN/Creatinine Ratio (10-20) Glucose (70-99) mg/dl Lactate 1.0 (0.4-2.0) mmol/L Calcium (8.5-10.1) mg/dl Total Bilirubin (0.2-1) mg/dl AST (15-37) U/L ALT (12-78) U/L Alkaline Phosphatase (45-117) U/L Troponin I (0-0.045) ng/ml C-Reactive Protein (0-0.29) mg/dl Total Protein (6.4-8.2) gm/dl Albumin (3.4-5.0) gm/dl Globulin (2.5-4.0) gm/dl Albumin/Globulin Ratio (0.9-2) Urine Color Urine Appearance (Clear) Urine pH (4.5-7.5) Ur Specific [place] (1.000-1.030) Urine Protein (Negative) Urine Glucose (UA) (Negative) Urine Ketones (Negative) Urine Blood (Negative) Urine Nitrite (Negative) Urine Bilirubin (Negative) Urine Urobilinogen (Negative) Ur Leukocyte Esterase (Negative) Urine WBC (Auto) (0-5) /hpf Urine RBC (Auto) (0-4) /hpf U Hyaline Cast (Auto) (0-5) /lpf U Epithel Cells (Auto) (0-5) /lpf Urine Bacteria (Auto) (Negative) Calcium Oxalate Crystal (None Prsent) Urine Yeast POC Ur Test (NEG) Urine Opiates Screen (Neg) Ur Methadone, Qual (Neg) Urine Barbiturates (Neg) Ur Phencyclidine (PCP) (Neg) U Amphetamines Confirm U Amphetamin/Meth Scrn (Neg) U Methamphetamin Confrm Urine MDEA MDMA (Ecstasy) Screen (Neg) MDMA Urine MDMA U Benzodiazepines Scrn (Neg) U Cocaine Confirm GC/MS Ur Cocaine Metabolite (Neg) U Marijuana (THC) Screen (Neg) Drug Screen Comment Diagnostic Findings RIGHT UPPER EXTREMITY ULTRASOUND CLINICAL HISTORY: right arm abscess/cellulitis antecubital area COMPARISON STUDY: Right upper extremity venous Doppler ultrasound and CT of the right elbow March 22, 2019. TECHNIQUE: Sonography of the right antecubital fossa was performed. FINDINGS: Within the right antecubital fossa, note is made of a complex subcutaneous fluid collection that measures 4 x 2.2 x 3.1 cm. Hypervascularity of the adjacent soft tissues is noted. Note is made of superficial thrombus within the right antecubital vein which is surrounded by the abscess. The right brachial vein is patent. IMPRESSION: 1. 4 x 2.2 x 3.1 cm complex fluid collection within the right antecubital fossa consistent with an abscess. 2. Superficial thrombus within the right antecubital vein which is surrounded by the abscess. (1) Abscess of skin or subcutaneous tissue Site of cutaneous abscess: extremity Site of cutaneous abscess of extremity: unspecified Qualified Code(s): L02.419 - Cutaneous abscess of limb, unspecified
[2019-07-27] MEDS: ACETAMINOPHEN 1000 MG/100 ML IV IV SCH ×2 (10:56→21:03)
[2019-07-27] MEDS: VANCOMYCIN HCL 1,000 MG in SODIUM CHLORIDE 0.9% 250 ML IV SCH ×2 (12:08→21:24)
[2019-07-27] MEDS: PIPERACILLIN/TAZOBACTAM 3.375 GM in DEXTROSE 5% 100 ML IV SCH ×2 (12:39→21:23)
--- NOTE | 2019-07-27 13:29 | Hospitalist Progress Note ---
Date of Service July 27, 2019 Assessment & Plan (1) Abscess of skin or subcutaneous tissue: Patient has subcutaneous abscess from intravenous drug abuse continues on vancomycin and Zosyn for surgical washout on 07/27/2019 Patient is homeless she is evasive about her plans to secure living situation and financial stability in the future. DVT prevention will be chemoprophylaxis once her operative procedure is done Admission and Anticipated Discharge Date Admission Date: July 27, 2019 Subjective pt has pain and tenderness in right antecubital area, she speaks openly about her drug abuse Review of Systems Review of Systems: Mild distress and fatigue no headache, blurry or double vision no speech or swallowing issues no chest pain, pressure or palpitations no shortness of breath, cough or wheezes no abdominal pain, nausea or vomiting, diarrhea or constipation no dysuria, hematuria or frequency Significant right elbow pain swelling fluctuance and induration consistent with a subcutaneous abscess. Significant bruising about her other arms from intravenous drug abuse no back pain, CVA tenderness or radicular pain no bruising, bleeding or rashes no focal signs of weakness or numbness or altered sensation no complaints or anxiety or depression. Physical Exam Physical Exam: The patient appeared well nourished and normally developed. Vital signs as documented. Head exam is normocephalic atraumatic no scleral icterus Neck is without JVD, thyromegaly, or carotid bruits. Lungs are clear to auscultation, no focal loss of breath sounds Cardiac exam, Rhythm is regular.. No murmurs, rubs or gallops. Abdominal exam reveals normal bowel sounds, soft non tender, no masses Extremities right antecubital fossa with swelling fluctuance and induration consistent with a subcutaneous abscess. Significant bruising about her other arms from intravenous drug abuse Neurologic exam is alert and oriented, no focal loss of strength or sensation Skin is without bruises or rashes Psychologically is without concerns for anxiety or depression Results & Data Results & Data ([facility]) Vital Signs (Past 12 Hours) Vital Signs Temp Pulse Pulse Pulse Resp BP BP 07/27/19 07:07 98.1 F 83 20 109/69 07/27/19 06:20 97.9 F 93 H 16 127/81 07/27/19 06:18 84 18 111/74 07/27/19 05:10 75 16 103/68 07/27/19 04:06 80 16 113/88 Pulse Ox 07/27/19 07:07 100 07/27/19 06:20 97 07/27/19 06:18 98 07/27/19 05:10 98 07/27/19 04:06 99 PG Care Time/CCT Total # of Minutes Spent Total Time Spent with Patient: Total time spent is greater than 50% in coordination of care (as documented) at patient's floor/unit and/or counseling patient: Coding Level of Care Code 13210 Subseq Hosp Care Lvl 2 Diagnoses Abscess of skin or subcutaneous tissue L02.419 Site of cutaneous abscess: extremity Site of cutaneous abscess of extremity: unspecified (1) Abscess of skin or subcutaneous tissue Site of cutaneous abscess: extremity Site of cutaneous abscess of extremity: unspecified Qualified Code(s): L02.419 - Cutaneous abscess of limb, unspecified
--- NOTE | 2019-07-27 14:45 | Pharmacy Report ---
Pharmacy Abx Initial Consult - Date of Service July 27, 2019 - Pharmacy Dosing Scope Date of Consult: 07/26 Consultation requested by: Dr. Euceda Pharmacy is consulted to initiate vanco/zosyn IV/PO dosing therapy, order appropriate labs and adjust drug dose/frequency. - Subjective The patient is a 24 year old F admitted on 07/27/19 05:11. - Objective Height: 5 ft 6 in Weight: 72.1 kg Vital Signs (Past 12hrs): Vital Signs Temp Pulse Pulse Pulse Resp BP BP 07/27/19 07:07 36.7 C 83 20 109/69 07/27/19 06:20 36.6 C 93 H 16 127/81 07/27/19 06:18 84 18 111/74 07/27/19 05:10 75 16 103/68 07/27/19 04:06 80 16 113/88 Pulse Ox 07/27/19 07:07 100 07/27/19 06:20 97 07/27/19 06:18 98 07/27/19 05:10 98 07/27/19 04:06 99 Lab Results (24hrs): Laboratory Tests (24 Hours) 07/27/19 07/27/19 07/27/19 02:48 02:48 02:48 WBC 14.66 H Neut # (Auto) 11.59 H ESR 31 H Creatinine 0.92 Est Cr Clr Drug Dosing 95.5 C-Reactive Protein 11.50 H Micro Results: 07/27/19 02:50 Urine Culture - Pending Urine,Clean Catch 07/27/19 03:06 Aerobic Blood Culture - Pending Blood Anaerobic Blood Culture - Pending 07/27/19 02:48 Aerobic Blood Culture - Pending Blood Anaerobic Blood Culture - Pending - Assessment & Plan Assessment 24 year old with subcutaneous abscess from IV drug abuse started on vancomycin and zosyn. For surgical washout 07/26 Plan Vancomycin IV * Received loading dose of 1500 mg this AM (21 mg/kg) * Will start maintenance dose of 1000 mg iv q 8 hrs - based upon vancomycin nomogram * Plan to obtain level tomorrow around 1200 dose * Estimated kinetics t1/2~8 hrs, ke ~0.084, CrCl ~96 ml/min Piperacillin/tazobactam * 3.375 gm iv q 8 - no change Pharmacy will continue to follow and will adjust dose/frequency as necessary. Milton parker
--- NOTE | 2019-07-27 17:10 | XCELERA ---
[id number]
[2019-07-27] MEDS: NICOTINE 21 MG/24 HR TDSY TD SCH (18:32)
--- NOTE | 2019-07-27 19:17 | Electrocardiogram Report ---
Test Reason : Blood Pressure : / mmHG Vent. Rate : 094 BPM Atrial Rate : 094 BPM P-R Int : 138 ms QRS Dur : 084 ms QT Int : 384 ms P-R-T Axes : 070 051 033 degrees QTc Int : 480 ms Normal sinus rhythm Prolonged QT Abnormal ECG When compared with ECG of 07-DEC-2017 09:33, No significant change was found Confirmed by Sylvain Chacon ([id number]) on 07/27/2019 7:16:38 PM Referred By: REFERRED SELF Confirmed By:Boy Chacon
[2019-07-28] MEDS: ACETAMINOPHEN 1000 MG/100 ML IV IV SCH ×2 (03:35→12:52)
[2019-07-28] MEDS: PIPERACILLIN/TAZOBACTAM 3.375 GM in DEXTROSE 5% 100 ML IV SCH ×2 (04:00→13:21)
[2019-07-28] MEDS: VANCOMYCIN HCL 1,000 MG in SODIUM CHLORIDE 0.9% 250 ML IV SCH ×2 (04:01→13:10)
--- NOTE | 2019-07-28 05:49 | Billing Data ---
Date of Service July 28, 2019 Coding Level of Care Code 86056 Initial Inpt Care Lvl 3
[2019-07-28] MEDS: NICOTINE 21 MG/24 HR TDSY TD SCH (08:03)
[2019-07-28] MEDS ORDERED: ONDANSETRON INJ 2 MG/ML 2 ML VIAL IV PRN (08:43)
--- NOTE | 2019-07-28 08:43 | Surgery Progress Note ---
Date of Service July 28, 2019 Assessment & Plan (1) Abscess of skin or subcutaneous tissue: For I&D of abscess today. Discussed surgery and complications yesterday Consent signed No questions today Subjective No new complaints. Still with pain in the right arm just above the elbow Results & Data Vital Signs (Past 12 Hours) Vital Signs Temp Pulse Resp BP Pulse Ox 07/28/19 07:15 37.1 C 96 H 16 124/78 98 07/27/19 23:52 37.1 C 97 H 21 103/58 L 99 Laboratory Results 07/27/19 Range/Units 18:13 Potassium 4.1 D (3.5-5.1) mmol/L (1) Abscess of skin or subcutaneous tissue Site of cutaneous abscess: extremity Site of cutaneous abscess of extremity: unspecified Qualified Code(s): L02.419 - Cutaneous abscess of limb, unspecified
[2019-07-28] MEDS ORDERED: LIDOCAINE HCL 2% 2 ML VIAL/AMP(20MG/ML) INFIL ONE (09:54)
[2019-07-28] MEDS ORDERED: MIDAZOLAM HCL 1 MG/ML 2ML VIAL ONE (09:54)
[2019-07-28] MEDS ORDERED: DEXAMETHASONE SOD INJ 4 MG/ML VIAL ONE (09:54)
[2019-07-28] MEDS ORDERED: fentaNYL citrate 100 MCG/2 ML VIAL ONE (09:54)
[2019-07-28] MEDS ORDERED: PROPOFOL IV EMULSION 10 MG/ML 20 ML VIAL IV ONE (09:54)
[2019-07-28] MEDS ORDERED: ONDANSETRON INJ 2 MG/ML 2 ML VIAL ONE (09:54)
--- NOTE | 2019-07-28 10:04 | Anesthesiology Progress Note ---
Date of Service July 28, 2019 Anesthesia Post Procedure Vital Signs Vital Signs: Temp Pulse Resp BP Pulse Ox 07/28/19 07:15 37.1 C 96 H 16 124/78 98 07/27/19 23:52 37.1 C 97 H 21 103/58 L 99 07/27/19 15:40 36.6 C 88 17 112/75 100 Pain Intensity Right Arm: Pain Intensity: 0 Transfer of Care Handoff Completed per policy Notes Mental Status: alert / awake / arousable and participated in evaluation Patient Amnestic to Procedure: Yes Nausea / Vomiting: adequately controlled Pain: adequately controlled Airway Patency, RR, SpO2: stable & adequate BP & HR: stable & adequate Hydration State: stable & adequate Anesthetic Complications: no major complications apparent and Pt Satisfied with anesthetic care
--- NOTE | 2019-07-28 10:05 | Anesthesiology Consultation ---
Date of Service July 28, 2019 Assessment & Plan ASA ASA3 Proposed Anesthesia Anesthesia Type: General Risk / Benefits Reviewed With: PT / POA / Parent / Guardian, Accepts Plan and Informed Consent Obtained History Surgery Operation Date: 07/27/19 14:10 Proposed Procedures p Right Upper Extremity Abscess Incision and Drainage - Bill Macias MD Operation Date: 07/28/19 09:15 Proposed Procedures p Incision and Drainage right upper extremity - Bill Macias MD Height/Weight Height: 5 ft 6 in Weight: 72.1 kg Allergies Allergy/AdvReac Type Severity Reaction Status Date / Time No Known Allergies Allergy NONE Unverified 07/27/19 01:34 Medications Home Medications Medication Instructions Recorded Confirmed Last Taken No Known Home Medications 07/27/19 07/27/19 Unknown Active Medications Generic Name Dose Route Start Last Admin Trade Name Freq PRN Reason Stop Dose Admin Acetaminophen 1,000 mg 07/27/19 11:00 07/28/19 03:35 Ofirmev IV 07/30/19 10:59 1,000 mg Q8H ELIZABETH Administration Vancomycin HCl 1,000 mg/ 270 mls @ 125 mls/hr 07/27/19 12:00 07/28/19 06:17 Sodium Chloride IV 08/03/19 11:59 Infused Q8H ELIZABETH Infusion Protocol Piperacillin Sod/Tazobactam 115 mls @ 28.75 mls/hr 07/27/19 12:00 07/28/19 08:02 Sod 3.375 gm/ Dextrose IV 08/03/19 11:59 Infused Q8H ELIZABETH Infusion Protocol Miscellaneous 1 ea 07/28/19 08:59 07/28/19 08:14 Remove Nicoderm Patch N/A 08/27/19 08:58 1 ea [id number] ELIZABETH Administration Nicotine 21 mg 07/27/19 17:15 07/28/19 08:03 Nicoderm Cq TD 08/26/19 17:14 21 mg QAM ELIZABETH Administration Ondansetron HCl 4 mg 07/28/19 08:43 07/28/19 09:09 Zofran IV 08/27/19 08:42 4 mg Q6H PRN Administration Nausea NPO Date Last Intake of Fluids: 07/27/19 Time Last Intake of Fluids: 23:59 Date Last Intake of Solids: 07/27/19 Time Last Intake of Solids: 23:59 Past Medical History Medical History Abscess of antecubital fossa Amniotic fluid leaking Cellulitis of labia (Resolved) Cocaine abuse IV drug abuse Lumbar radiculopathy (Acute) Methamphetamine abuse Normal labor with 27 completed weeks gestation (Chronic) with 39 completed weeks gestation Pyelonephritis affecting in second trimester (Acute) Sepsis UTI (urinary tract infection) (Resolved) Exercise / Class Metabolic Activity II 4-5 Yardwork/Stairs/Walk up hill Past Family History Family History Other Cancer Diabetes Gallbladder disease Past Surgical History Surgical History No pertinent past surgical history Past Anesthesia History No Hx of Anesthesia Complications and No Family Hx of Anesthesia Complications History of PONV No Hx of PONV and No Hx of Motion Sickness Social History Smoking Status: Current every day smoker tobacco type: cigarettes Smoking cigarettes per day: x2 packs. Hx Alcohol Use: No Hx Substance Use: Yes substance use type: methamphetamine Last Used Substance: Days (ago) Last Used Substance Other:: 2 days ago. Review of Systems denies fever/cough/ colds/ chest pain/ SOB/ MAX Constitutional: no fever and no chills Respiratory: no cough and no dyspnea denies MAX Cardiovascular: no chest pain and no dyspnea on exertion Physical Exam Vital Signs Last Vital Signs Temp 37.1 C 07/28/19 07:15 Pulse 96 H 07/28/19 07:15 Resp 16 07/28/19 07:15 BP 124/78 07/28/19 07:15 Pulse Ox 98 07/28/19 07:15 ENMT Mouth: no TMJ abnormality and no dentition abnormality Thyromental Distance: > or= 3.5 Finger Breadths Mallampati Class: II Neck neck extension not limited Respiratory normal respiratory effort; no respiratory distress Auscultation: lungs clear to auscultation bilaterally Cardiovascular Rate/Rhythm: regular rate and regular rhythm Neurologic moves all extremities Psychiatric Orientation: alert and oriented x 3 Testing Laboratory Results 07/27/19 02:48 Urine Color Dark Yellow 07/27/19 02:50 Urine Appearance Cloudy (Clear) A 07/27/19 02:50 Urine pH 5.5 (4.5-7.5) 07/27/19 02:50 Ur Specific [place] 1.033 (1.000-1.030) H 07/27/19 02:50 Urine Protein Trace (Negative) H 07/27/19 02:50 Urine Glucose (UA) Negative (Negative) 07/27/19 02:50 Urine Ketones Trace (Negative) H 07/27/19 02:50 Urine Nitrite Positive (Negative) A 07/27/19 02:50 Ur Leukocyte Esterase Trace (Negative) H 07/27/19 02:50 Urine WBC (Auto) 1-5 /hpf (0-5) 07/27/19 02:50 Urine RBC (Auto) 5-10 /hpf (0-4) H 07/27/19 02:50 U Hyaline Cast (Auto) 5-10 /lpf (0-5) H 07/27/19 02:50 U Epithel Cells (Auto) >30 /lpf (0-5) H 07/27/19 02:50 Urine Bacteria (Auto) 3+ (Negative) H 07/27/19 02:50 07/27/19 02:48 Aerobic Blood Culture - Preliminary Blood No growth in Aerobic bottle after 24 hours. Anaerobic Blood Culture - Preliminary No growth in Anaerobic bottle after 24 hours. 07/27/19 03:06 Aerobic Blood Culture - Preliminary Blood No growth in Aerobic bottle after 24 hours. Anaerobic Blood Culture - Preliminary No growth in Anaerobic bottle after 24 hours. 07/27/19 02:50 POC Ur Test NEG
[2019-07-28 10:19] LABS: Creatinine Clr Calc Pharmacy 152.1 ml/min; Est GFR (African American) 149.5
[2019-07-28] MEDS ORDERED: LIDOCAINE/EPINEPHRINE 1% 20 ML VIAL ONE (10:59)
--- NOTE | 2019-07-28 11:14 | Post Operative Brief Note ---
Immediate Post Op Note v1 Date of Surgery July 28, 2019 Pre & Post Diagnosis Operation Date: 07/28/19 09:15 Abscess right arm I identified the patient and participated in the time-out.: Yes Procedure Operation Date: 07/28/19 09:15 I&D abscess right arm Surgeon Bill Macias MD Dental Instructor None Estimated Blood Loss 2 Findings Consistent with Post-Op Diagnosis
[2019-07-28] MEDS ORDERED: VANCOMYCIN TROUGH ONE (11:30)
--- NOTE | 2019-07-28 12:24 | Anesthesiology Progress Note ---
Date of Service July 28, 2019 Anesthesia Post Procedure Vital Signs Vital Signs: Temp Pulse Pulse Resp BP BP Pulse Ox 07/28/19 12:15 37.0 C 98 H 16 110/73 07/28/19 12:00 36.1 C L 88 14 116/71 100 07/28/19 11:50 90 15 118/74 100 07/28/19 11:44 36.1 C L 96 H 11 L 112/84 100 07/28/19 07:15 37.1 C 96 H 16 124/78 98 07/27/19 23:52 37.1 C 97 H 21 103/58 L 99 07/27/19 15:40 36.6 C 88 17 112/75 100 Pain Intensity Right Arm: Pain Intensity: 0 Transfer of Care Handoff Completed per policy Notes Mental Status: alert / awake / arousable and participated in evaluation Patient Amnestic to Procedure: Yes Nausea / Vomiting: adequately controlled Pain: adequately controlled Airway Patency, RR, SpO2: stable & adequate BP & HR: stable & adequate Hydration State: stable & adequate Anesthetic Complications: no major complications apparent and Pt Satisfied with anesthetic care
--- NOTE | 2019-07-28 12:46 | Pharmacy Report ---
Pharmacy Abx Dose Short Note - Date of Service July 28, 2019 - Assessment & Plan Assessment 24 year old F receiving IV Vancomycin and Zosyn for treatment of R arm abscess * Day #2 of antimicrobial therapy * Patient is afebrile, no cbc today, significant improvement in renal fxn (SCr 0.92 mg/dL --> 0.58 mg/dL) * POD #0 s/p I&D of R arm abscess * Trough was 11.6 mcg/mL today. Goal ~15 mcg/mL. Low trough attributed to improvement in renal fxn. * Will increase dose today * Continue Vanc and Zosyn until cultures are finalized - Urine Culture growing staphylococcal species Plan Vancomycin * Trough level of 11.6 mcg/mL is subtherapeutic * Change to 1250 mg IV every 8 hours * Goal trough ~15 mcg/mL * Trough level ordered for tomorrow prior to the 4th maintenance dose Zosyn * 3.375 g IV every 8 hours * Appropriate per indication and renal fxn Pharmacy will continue to follow and will adjust dose/frequency as necessary. Thank you.
[2019-07-28] MEDS ORDERED: VANCOMYCIN HCL 1,250 MG in SODIUM CHLORIDE 0.9% 250 ML IV SCH (13:00)
--- NOTE | 2019-07-28 14:11 | Operative Report (OR) ---
DATE OF OPERATION: 07/28/2019 PREOPERATIVE DIAGNOSIS: Abscess, right arm. POSTOPERATIVE DIAGNOSIS: Abscess, right arm. PROCEDURE: Incision and drainage of abscess, right arm. SURGEON: Bill Macias MD. FINDINGS: The patient had an abscess cavity in the subcutaneous tissue that measured about 3 x 4 cm. There was a significant amount of purulent material. This was cultured. There were no other abscesses identified. TECHNIQUE: The patient was given a general anesthesia and the area was prepped and draped in the usual sterile fashion. The abscess had begun to drain spontaneously. The skin was anesthetized with 1% Xylocaine with epinephrine and the opening increased in size. Large amount of pus was expressed and this was cultured. This was then irrigated with a copious amount of saline solution. There was one area of bleeding from the thrombosed vein that was ligated with 3-0 Vicryl tie. The wound was then packed and dressed. Estimated blood loss was 2 mL Sponge, needle and instrument counts were correct prior to closure. The patient tolerated the surgical procedure without complication and was transferred to recovery. I attest to the content of the Intraoperative Record and any orders documented therein. Any exception s are noted below.
--- NOTE | 2019-07-28 16:49 | Hospitalist Progress Note ---
Date of Service July 28, 2019 Assessment & Plan (1) Abscess of skin or subcutaneous tissue: Patient has subcutaneous abscess from intravenous drug abuse continues on vancomycin and Zosyn for surgical washout on 07/27/2019 Patient is homeless she is evasive about her plans to secure living situation and financial stability in the future. now maybe interested in drug rehab DVT prevention will be chemoprophylaxis once her operative procedure is done Admission and Anticipated Discharge Date Admission Date: July 27, 2019 Subjective No new complaints. elbow has improved after surgery. Pt now maybe interested in rehab for her drug abuse Review of Systems Review of Systems: Mild distress and fatigue no headache, blurry or double vision no speech or swallowing issues no chest pain, pressure or palpitations no shortness of breath, cough or wheezes no abdominal pain, nausea or vomiting, diarrhea or constipation no dysuria, hematuria or frequency pt with right arm bandaged, has obvious track maldonado on left upper arm also no back pain, CVA tenderness or radicular pain no bruising, bleeding or rashes no focal signs of weakness or numbness or altered sensation no complaints or anxiety or depression. Physical Exam Physical Exam: The patient appeared well nourished and normally developed. Vital signs as documented. Head exam is normocephalic atraumatic no scleral icterus Neck is without JVD, thyromegaly, or carotid bruits. Lungs are clear to auscultation, no focal loss of breath sounds Cardiac exam, Rhythm is regular.. No murmurs, rubs or gallops. Abdominal exam reveals normal bowel sounds, soft non tender, no masses Extremities right antecubital fossa left arm with track maldonado Neurologic exam is alert and oriented, no focal loss of strength or sensation Skin is without bruises or rashes Psychologically is without concerns for anxiety or depression Results & Data Results & Data ([facility] Vital Signs (Past 12 Hours) Vital Signs Temp Pulse Pulse Resp BP BP Pulse Ox 07/28/19 15:45 97.7 F 96 H 16 114/72 100 07/28/19 14:14 97.7 F 97 H 16 114/73 98 07/28/19 13:15 97 H 14 103/63 99 07/28/19 12:46 97.9 F 93 H 16 102/67 98 07/28/19 12:15 98.6 F 98 H 16 110/73 07/28/19 12:00 97.0 F L 88 14 116/71 100 07/28/19 11:50 90 15 118/74 100 07/28/19 11:44 97.0 F L 96 H 11 L 112/84 100 07/28/19 07:15 98.8 F 96 H 16 124/78 98 PG Care Time/CCT Total # of Minutes Spent Total Time Spent with Patient: Total time spent is greater than 50% in coordination of care (as documented) at patient's floor/unit and/or counseling patient: Coding Level of Care Code 42157 Subseq Hosp Care Lvl 2 Diagnoses Abscess of skin or subcutaneous tissue L02.419 Site of cutaneous abscess: extremity Site of cutaneous abscess of extremity: unspecified (1) Abscess of skin or subcutaneous tissue Site of cutaneous abscess: extremity Site of cutaneous abscess of extremity: unspecified Qualified Code(s): L02.419 - Cutaneous abscess of limb, unspecified
[2019-07-29] MEDS ORDERED: ENOXAPARIN INJ 40 MG/0.4 ML SYR SQ SCH (09:00)
--- NOTE | 2019-07-29 09:13 | Discharge Summary ---
Date of Service July 29, 2019 Admission HPI Per Admitting Provider Pt is a 24yo with a stated PMHx of anxiety and depression (not currently on medication) who presents with right arm abscess and superficial thrombophlebitis secondary to IV drug use. States she injected methamphetamines into the arm about 2 days ago, but denies knowingly using cocaine or ecstasy. States she has been injecting for the last 2 years, dabbled with other recreational drug use before that. States she has 3 children who are currently with her mother who has full custody. States she is currently homeless, was living with a stranger turned friend who got incarcerated. States that she has no support system as her family has abandoned her, and the father of her last 2 children is also incarcerated. Wanted me to contact her mother however, to let her know that she was hospitalized. PMHx: Anxiety and Depression, IV drug abuse Meds: None SH: Currently homeless, smokes 1ppd, injects methamphetamines, denies alcohol use. ED Course: NSS, Tylenol and Toradol for pain, loading dose of Vancomycin Principal Diagnosis Pt left AMA right antecubital abscess s/p I&D 07/27/19 Discharge Exam pt left ama after being seen in the am Discharge Data Allergies Allergy/AdvReac Type Severity Reaction Status Date / Time No Known Allergies Allergy NONE Unverified 07/27/19 01:34 Consultations 07/27/19 05:00 ED Decision to Admit Stat 07/27/19 05:20 Consult General Surgery Routine 07/27/19 05:24 Consult Case Management - Discharge Planning Routine Procedures Performed Operation Date: 07/27/19 14:10 <No data on this case meets the specified criteria> Operation Date: 07/28/19 09:15 Actual Procedures p Incision and Drainage right upper extremity(Right) - Bill Macias MD Ordered Studies 07/27/19 02:05 US extremity non-vascular ltd Urgent Hospital Course (1) Abscess of skin or subcutaneous tissue: Patient has subcutaneous abscess from intravenous drug abuse continues on vancomycin and Zosyn for surgical washout on 07/27/2019 Patient is homeless she is evasive about her plans to secure living situation and financial stability in the future. now maybe interested in drug rehab DVT prevention will be chemoprophylaxis once her operative procedure is done Total Time Total Time Spent Total Time Spent (In Minutes): pt left ama Discharge Plan Discharge Items Patient Disposition: Against Medical Advice Reason For Visit: ABSCESS Follow-up/Referrals: Mary Ellen Pickens CRNP [Primary Care Provider] - Stand-Alone Forms: My [facility], Smoking Cessation Medications and DC Order Prescriptions: No Action No Known Home Medications RF: 0 Admission Data Admit Date/Time: 07/28/19 16:52 Attending Provider: Hever Justin Admit Provider: Vivien Euceda Primary Care Provider: Mary Ellen Pickens Other Providers: Hever Justin ; Ceasar Neves Mark Other Interventions: Discharge Summary Assessment (RN) Last Done: 07/28/19 19:22 DC Date/Time DO NOT enter until pt leaves facility: 07/28/19 19:27 Coding Level of Care Code None Diagnoses Abscess of skin or subcutaneous tissue L02.419 Site of cutaneous abscess: extremity Site of cutaneous abscess of extremity: unspecified
[2019-07-29] MEDS ORDERED: VANCOMYCIN TROUGH ONE (12:30)
[2019-07-31 08:56] LABS: Amphetamine Urine, Confirm >15000 ng/mL (<250); Cocaine, Urine 341 ng/mL (<100); MDA negative; MDEA negative; MDMA (Ecstasy) Urine, Confirm negative; Methamphetamine, Ur Confirm >15000 ng/mL (<250)
== END 2019-07-28 19:27 | disposition left against medical advice (07) ==
LOC: 3W 01:19 → ED 01:19 → SUATTDRO 05:11 → 3W 06:18